=== PATIENT | female | born 1960 ===

== ENCOUNTER 2018-06-10 12:10 | Inpatient (IN) | payer OTHER ==
[2018-06-10] MEDS ORDERED: Sodium Chloride 0.9% 1,000 ML IV ONE (12:49)
[2018-06-10 13:08] LABS: BASO % 0.4 % (0.0-2.0); EOS % 0.3 % (0.0-4.0); HEMOGLOBIN 13.7 g/dL (11.0-16.0); LYMPH # 0.6 K/uL (1.0-4.3); LYMPH % 5.6 % (20.0-40.0); MEAN CELL VOLUME 85.1 fL (81.0-99.0); MEAN CORPUSCULAR HGB CONC 34.1 g/dL (33.0-37.0); MEAN PLATELET VOLUME 10.7 fL (7.2-11.7); MONO # 0.5 K/uL (0.0-0.8); MONO % 4.7 % (0.0-10.0); NEUT # 9.5 K/uL (1.8-7.0); PLATELET COUNT 173 K/uL (130-400); RBC 4.71 Mil/uL (3.80-5.20); RED CELL DISTRIBUTION WIDTH 14.6 % (11.5-14.5); WHITE BLOOD COUNT 10.6 K/uL (4.8-10.8)
--- NOTE | 2018-06-10 13:24 | C.PDOC ---
History Of Present Illness 58 year old female with history of diabetes and hypertension presents to ED complaining of a headache, dizziness, body aches, malaise, and a subjective fever for the past 2 days. Patient states she is visiting from [place] to see her family and reports she feels nauseated, vomited twice, and has urine frequency. She also states she is taking glucophage, novolin insulin, and three other medications for her blood pressure. Denies diarrhea and offers no other medical complaints. She has no cough or URI symptoms. Time Seen by Provider: 06/10/18 12:39 Chief Complaint (Nursing): Dizziness/Lightheaded History Per: Patient History/Exam Limitations: no limitations Onset/Duration Of Symptoms: Days Current Symptoms Are (Timing): Still Present Recent travel outside of the [facility]: Yes ([place]) Past Medical History Reviewed: Historical Data, Nursing Documentation, Vital Signs Vital Signs: Last Vital Signs Temp 99.1 F 06/10/18 12:13 Pulse 100 H 06/10/18 12:13 Resp 18 06/10/18 12:13 BP 138/81 06/10/18 12:13 Pulse Ox 100 06/10/18 15:20 - Medical History PMH: Diabetes, HTN Surgical History: Appendectomy Other Surgeries: Uterine myomectomy Family History: States: No Known Family Hx - Social History Hx Alcohol Use: No Hx Substance Use: No - Immunization History Hx Tetanus Toxoid Vaccination: No Hx Influenza Vaccination: No Hx Pneumococcal Vaccination: No Review Of Systems Constitutional: Positive for: Fever, Malaise Cardiovascular: Negative for: Chest Pain Respiratory: Negative for: Shortness of Breath Gastrointestinal: Positive for: Nausea, Vomiting. Negative for: Diarrhea Genitourinary: Positive for: Frequency Neurological: Positive for: Headache. Negative for: Weakness, Numbness Physical Exam - Physical Exam Appears: Non-toxic, No Acute Distress, Other (obese) Skin: Warm, Dry Head: Atraumatic, Normacephalic Eye(s): bilateral: Normal Inspection Ear(s): Bilateral: Normal Nose: Normal Oral Mucosa: Moist Tongue: Normal Appearing Throat: Normal Chest: Symmetrical Cardiovascular: Rhythm Regular Respiratory: Normal Breath Sounds, No Rales, No Rhonchi, No Wheezing ( tachycardic) Gastrointestinal/Abdominal: Soft, No Tenderness, No Distention Extremity: No Other (peripheral edema) Neurological/Psych: Oriented x3 Gait: Steady ED Course And Treatment - Laboratory Results Result Diagrams: 06/10/18 12:56 06/10/18 12:56 Lab Interpretation: Abnormal (Elevated gluxose 308) ECG: Interpreted By Me ECG Rhythm: Sinus Tachycardia ( with Q waves III, AVF ) O2 Sat by Pulse Oximetry: 100 (RA) Pulse Ox Interpretation: Normal - Radiology CXR: Interpreted by Oh CXR Interpretation: Yes: Other (nodule RUL) - CT Scan/US CT chest Other Rad Studies (CT/US): Read By Radiologist, Radiology Report Reviewed CT/US Interpretation: FINDINGS: LUNGS: No alveolitis is clearly evident however scattered ground-glass opacities appreciated diffusely bilaterally, of uncertain origin. There is a 1.5 x 2.1 cm mass contained within a cavitary lesion at the right upper lobe inferolaterally. The lack of intravenous contrast limits interpretation however this may represent an aspergilloma or other fungal lesion. Neoplasm is not favored but is not completely excluded. A 3 mm and subpleural nodule identified in the left lower lobe for which follow- up chest CT should be considered in 12 months unless this is a low risk patient. MEDIASTINUM: The thoracic inlet is unremarkable. The thoracic aorta is normal in caliber. Main pulmonary artery is dilated to 3.5 cm which can be seen in pulmonary artery hypertension and clinical correlation is advised. There is mild cardiomegaly. Lack it intravenous contrast limits evaluation the mediastinal anatomy to some degree however gross lymphadenopathy is not identified. No pleural or pericardial effusion identified. PLEURA: No pleural fluid. No pneumothorax. BONES: No fracture. No destructive lesion. UPPER ABDOMEN: Cholelithiasis. Punctate intrarenal calculus upper pole right kidney. OTHER FINDINGS: None. IMPRESSION: 1. 2.1 cm mass is identified in the right upper lobe within a cavitary thin walled structure suspicious for an aspergilloma or other fungal lesion. Neoplasm is not favored but is not completely excluded. 2. Mild but diffuse ground-glass opacity scattered bilaterally, nonspecific finding but could reflect active interstitial pulmonary disease. Clinically correlate further. No pleural or pericardial effusion or significant lymphadenopathy. 3. 4 mm subpleural nodule left lower lobe. Clinically correlate as to risk factors for developing lung cancer. Follow-up chest CT can be performed 1 year for high-risk cancer patients. 4. Incidental cholelithiasis. Punctate intrarenal calculus upper pole right kidney. Reevaluation Time: 16:08 Reassessment Condition: Unchanged - Physician Consult Information Time Consulting Physician Contacted: 16:08 Physician Contacted: Jason Ernandez Outcome Of Conversation: Patient to be admitted for treatment of RUL cavitary lung lesion. Patient place in an isolation room. Medical Decision Making Medical Decision Making: Impression: Headache Plan: * CT chest * X-ray, chest one view * labs * IV fluids * Urinalysis Disposition - Disposition Disposition: HOSPITALIZED Disposition Time: 16:09 Condition: STABLE - POA Present On Arrival: Poor Glycemic Control - Clinical Impression Clinical Impression: Cavitary lesion of lung - Scribe Statement The provider has reviewed the documentation as recorded by the Rose Turner Justino Provider Attestation: All medical record entries made by the Rose were at my direction and personally dictated by me. I have reviewed the chart and agree that the record accurately reflects my personal performance of the history, physical exam, medical decision making, and the department course for this patient. I have also personally directed, reviewed, and agree with the discharge instructions and disposition.
[2018-06-10 13:27] LABS: SQUAMOUS EPITHIAL 1 /hpf (0-5); URINE BACTERIA RARE (<OCC); URINE BILIRUBIN NEGATIVE (NEGATIVE); URINE BLOOD NEGATIVE (NEGATIVE); URINE CLARITY Clear (Clear); URINE COLOR Yellow (YELLOW); URINE GLUCOSE (UA) 3+ mg/dL (Normal); URINE LEUKOCYTE ESTERASE 1+ Leu/uL (Negative); URINE PROTEIN 2+ mg/dL (NEGATIVE); URINE UROBILINOGEN NORMAL mg/dL (0.2-1.0)
[2018-06-10 13:38] LABS: ALB/GLOB RATIO 1.1 (1.0-2.1); ALBUMIN 3.8 g/dL (3.5-5.0); ALT/SGPT 22 U/L (9-52); AST/SGOT 16 U/L (14-36); BLOOD UREA NITROGEN 14 mg/dL (7-17); CALCIUM 9.1 mg/dl (8.6-10.4); GFR AFRICAN-AMERICAN > 60; GFR NON-AFRICAN AMERICAN > 60
[2018-06-10 13:43] LABS: ANISOCYTOSIS SLIGHT; BANDS 4 % (0-2); LYMPHOCYTE 7 % (20-40); MONOCYTE 3 % (0-10); NEUTROPHIL 86 % (50-75); PLATELET ESTIMATE NORMAL (NORMAL); TOTAL CELLS COUNTED 100
[2018-06-10 13:44] LABS: LARGE PLATELETS PRESENT
--- NOTE | 2018-06-10 15:16 | CT ---
Date of service: 06/10/2018 PROCEDURE: CT Chest without contrast HISTORY: right lung nodule COMPARISON: None available. TECHNIQUE: Contiguous axial images were obtained through the chest without intravenous contrast enhancement. Sagittal and coronal reconstructions were performed. Radiation dose (DLP): 883.81 mGy-cm. This CT exam was performed using one or more of the following dose reduction techniques: Automated exposure control, adjustment of the mA and/or kV according to patient size, and/or use of iterative reconstruction technique. FINDINGS: LUNGS: No alveolitis is clearly evident however scattered ground-glass opacities appreciated diffusely bilaterally, of uncertain origin. There is a 1.5 x 2.1 cm mass contained within a cavitary lesion at the right upper lobe inferolaterally. The lack of intravenous contrast limits interpretation however this may represent an aspergilloma or other fungal lesion. Neoplasm is not favored but is not completely excluded. A 3 mm and subpleural nodule identified in the left lower lobe for which follow-up chest CT should be considered in 12 months unless this is a low risk patient. MEDIASTINUM: The thoracic inlet is unremarkable. The thoracic aorta is normal in caliber. Main pulmonary artery is dilated to 3.5 cm which can be seen in pulmonary artery hypertension and clinical correlation is advised. There is mild cardiomegaly. Lack it intravenous contrast limits evaluation the mediastinal anatomy to some degree however gross lymphadenopathy is not identified. No pleural or pericardial effusion identified. PLEURA: No pleural fluid. No pneumothorax. BONES: No fracture. No destructive lesion. UPPER ABDOMEN: Cholelithiasis. Punctate intrarenal calculus upper pole right kidney. OTHER FINDINGS: None. IMPRESSION: 1. 2.1 cm mass is identified in the right upper lobe within a cavitary thin walled structure suspicious for an aspergilloma or other fungal lesion. Neoplasm is not favored but is not completely excluded. 2. Mild but diffuse ground-glass opacity scattered bilaterally, nonspecific finding but could reflect active interstitial pulmonary disease. Clinically correlate further. No pleural or pericardial effusion or significant lymphadenopathy. 3. 4 mm subpleural nodule left lower lobe. Clinically correlate as to risk factors for developing lung cancer. Follow-up chest CT can be performed 1 year for high-risk cancer patients. 4. Incidental cholelithiasis. Punctate intrarenal calculus upper pole right kidney.
--- NOTE | 2018-06-10 16:33 | CP.PCM.HP ---
<Ewa Brown Adolfo - Last Filed: 06/10/18 19:10> History of Present Illness - History of Present Illness History of Present Illness: CC: vomiting, fever, chills HPI: Patient is a 58 year old F with PMHx of HTN and DMII who presents for 1 day of fevers, chills and vomiting. Patient had two episodes of vomiting up food yesterday and two episodes today. Patient denies any abdominal pain or new foods. Patient denies any sick contact. Patient admits to a headache and dizziness yesterday which have now resolved. Patient admits to increased urinary frequency for 1 day, but no hematuria or dysuria. Patient denies weight loss. Patient denies cough, congestion, chest pain, abdominal pain, diarrhea, or constipation. Patient is visiting from [place] (came on 05/24/18). Allergies: NKDA PMHx: HTN and DMII Psurg: appendectomy 1980, hysterectomy 2003 Famhx: sister DMII Social: denies tobacco, drugs, alcohol thinks she had the BCG vaccine as a child Present on Admission - Present on Admission Any Indicators Present on Admission: No History of DVT/PE: No History of Uncontrolled Diabetes: No Urinary Catheter: No Decubitus Ulcer Present: No Review of Systems - Constitutional Constitutional: Chills, Fever. absent: Anorexia, Fatigue - Cardiovascular Cardiovascular: absent: Chest Pain, Dyspnea, Dyspnea on Exertion, Palpitations - Respiratory Respiratory: absent: Cough, Wheezing, Chest Congestion - Gastrointestinal Gastrointestinal: Nausea, Vomiting. absent: Abdominal Pain, Constipation, Diarrhea - Genitourinary Genitourinary: Urinary Frequency. absent: Dysuria, Hematuria Past Patient History - Infectious Disease Hx of Infectious Diseases: None - Past Social History Smoking Status: Never Smoked - CARDIAC Hx Hypertension: Yes - ENDOCRINE/METABOLIC Hx Diabetes Insipidus: Yes - PSYCHIATRIC Hx Substance Use: No - SURGICAL HISTORY Hx Appendectomy: Yes Meds Allergies/Adverse Reactions: Allergies Allergy/AdvReac Type Severity Reaction Status Date / Time No Known Allergies Allergy Unverified 06/10/18 12:13 Physical Exam - Constitutional Appears: Non-toxic, No Acute Distress - Head Exam Head Exam: ATRAUMATIC, NORMAL INSPECTION, NORMOCEPHALIC - Eye Exam Eye Exam: EOMI, Normal appearance - ENT Exam ENT Exam: Mucous Membranes Moist - Respiratory Exam Respiratory Exam: Clear to Auscultation Bilateral, NORMAL BREATHING PATTERN - Cardiovascular Exam Cardiovascular Exam: REGULAR RHYTHM, RRR, +S1, +S2 - GI/Abdominal Exam GI & Abdominal Exam: Normal Bowel Sounds, Soft. absent: Tenderness - Extremities Exam Extremities exam: Positive for: normal inspection. Negative for: pedal edema, tenderness - Neurological Exam Neurological exam: Alert, Normal Gait, Oriented x3 - Psychiatric Exam Psychiatric exam: Normal Affect, Normal Mood - Skin Skin Exam: Intact, Normal Color, Warm Results - Vital Signs Recent Vital Signs: Last Vital Signs Temp 99.1 F 06/10/18 16:27 Pulse 93 H 06/10/18 16:27 Resp 18 06/10/18 16:27 BP 107/65 06/10/18 16:27 Pulse Ox 97 06/10/18 16:27 - Labs Result Diagrams: 06/10/18 12:56 06/10/18 12:56 Labs: Laboratory Results - last 24 hr 06/10/18 06/10/18 06/10/18 12:17 12:56 12:56 WBC 10.6 RBC 4.71 Hgb 13.7 Hct 40.1 MCV 85.1 MCH 29.0 MCHC 34.1 RDW 14.6 H Plt Count 173 MPV 10.7 Neut % (Auto) 89.0 H Lymph % (Auto) 5.6 L Meeker % (Auto) 4.7 Eos % (Auto) 0.3 Baso % (Auto) 0.4 Neut # (Auto) 9.5 H Lymph # (Auto) 0.6 L Meeker # (Auto) 0.5 Eos # (Auto) 0.0 Baso # (Auto) 0.0 Neutrophils % (Manual) 86 H Band Neutrophils % 4 H Lymphocytes % (Manual) 7 L Monocytes % (Manual) 3 Platelet Estimate Normal Large Platelets Present Anisocytosis (manual) Slight Sodium 136 Potassium 4.0 Chloride 95 L Carbon Dioxide 30 Anion Gap 14 BUN 14 Creatinine 0.9 Est GFR ( Amer) > 60 Est GFR (Non-Af Amer) > 60 POC Glucose (mg/dL) 257 H Random Glucose 308 H Calcium 9.1 Total Bilirubin 0.8 AST 16 ALT 22 Alkaline Phosphatase 132 H Total Protein 7.3 Albumin 3.8 Globulin 3.5 Albumin/Globulin Ratio 1.1 Urine Color Urine Clarity Urine pH Ur Specific Congress Urine Protein Urine Glucose (UA) Urine Ketones Urine Blood Urine Nitrate Urine Bilirubin Urine Urobilinogen Ur Leukocyte Esterase Urine WBC (Auto) Urine RBC (Auto) Ur Squamous Epith Cells Urine Bacteria 06/10/18 13:15 WBC RBC Hgb Hct MCV MCH MCHC RDW Plt Count MPV Neut % (Auto) Lymph % (Auto) Meeker % (Auto) Eos % (Auto) Baso % (Auto) Neut # (Auto) Lymph # (Auto) Meeker # (Auto) Eos # (Auto) Baso # (Auto) Neutrophils % (Manual) Band Neutrophils % Lymphocytes % (Manual) Monocytes % (Manual) Platelet Estimate Large Platelets Anisocytosis (manual) Sodium Potassium Chloride Carbon Dioxide Anion Gap BUN Creatinine Est GFR ( Amer) Est GFR (Non-Af Amer) POC Glucose (mg/dL) Random Glucose Calcium Total Bilirubin AST ALT Alkaline Phosphatase Total Protein Albumin Globulin Albumin/Globulin Ratio Urine Color Yellow Urine Clarity Clear Urine pH 6.0 Ur Specific Congress 1.014 Urine Protein 2+ H Urine Glucose (UA) 3+ H Urine Ketones Negative Urine Blood Negative Urine Nitrate Negative Urine Bilirubin Negative Urine Urobilinogen Normal Ur Leukocyte Esterase 1+ H Urine WBC (Auto) 13 H Urine RBC (Auto) 2 Ur Squamous Epith Cells 1 Urine Bacteria Rare Assessment & Plan - Assessment and Plan (Free Text) Assessment: Cavitary Lesion TB vs fungal vs infection Chest CT: 2.1 cm mass is identified in the right upper lobe within a cavitary thin walled structure suspicious for an aspergilloma or other fungal lesion. Neoplasm is not favored but is not completely excluded. Mild but diffuse ground glass opacity scattered bilaterally, nonspecific finding but could reflect active interstitial pulmonary disease. Clinically correlate further. No pleural or pericardial effusion or significant lymphadenopathy. 4mm subpleural nodule left lower lobe. Clinically correlate as to risk factors for developing lung cancer Incidental Cholelithiasis. Punctate intrarenal calculus upper pole right kidney. ID, Dr. Roberts consulted, help appreciated neg for flu a/b f/u Quantiferon gold -PPD (f/u read) -AFB sputum x 3 (using mucomyst and duonebs to initiate sputum production) -sputum -HIV1/2 r/o rheumatologic causes ESR, CELE, ANCA f/u legionella, mycoplasma, strep pneumo meds: Azithromycin 500mg ivpb daily Rocephin 1gm q12h Florastor 250mg po BID UTI urine: 1+ leuk esterase f/u urine culture Rocephin 1gm q12h HTN Amlodipine 5mg po daily Bisoprolol 10mg po daily HCTZ 25mg po daily DMII accuchecks ISS hypoglycemia protocol Prophylaxis: SCDs Heparin 5000u sc q8h Pepcid 20mg po daily Discussed with Dr. Rhodes <CarmeloShireen V - Last Filed: 06/13/18 22:18> Results - Vital Signs Recent Vital Signs: Last Vital Signs Temp 98.1 F 06/13/18 15:25 Pulse 87 06/13/18 15:25 Resp 20 06/13/18 15:25 BP 123/71 06/13/18 15:25 Pulse Ox 96 06/13/18 15:25 - Labs Result Diagrams: 06/13/18 08:08 06/13/18 08:08 Labs: Laboratory Results - last 24 hr 06/10/18 06/11/18 06/12/18 19:36 08:41 07:03 WBC RBC Hgb Hct MCV MCH MCHC RDW Plt Count MPV Neut % (Auto) Lymph % (Auto) Meeker % (Auto) Eos % (Auto) Baso % (Auto) Neut # (Auto) Lymph # (Auto) Meeker # (Auto) Eos # (Auto) Baso # (Auto) Sodium Potassium Chloride Carbon Dioxide Anion Gap BUN Creatinine Est GFR ( Amer) Est GFR (Non-Af Amer) POC Glucose (mg/dL) Random Glucose Calcium Phosphorus Magnesium Total Bilirubin AST ALT Alkaline Phosphatase Total Protein Albumin Globulin Albumin/Globulin Ratio Urine Color Urine Clarity Urine pH Ur Specific Congress Urine Protein Urine Glucose (UA) Urine Ketones Urine Blood Urine Nitrate Urine Bilirubin Urine Urobilinogen Ur Leukocyte Esterase Urine WBC (Auto) Ur Squamous Epith Cells Urine Bacteria Urine Yeast (Budding) CELE Screen Negative Proteinase 3 (PR3) <1.0 Myeloperoxidase Ab <1.0 Thyroperoxidase Ab 1 TB Test (QFT) Nil TNP TB Test Mitogen - Nil TNP TB Test TB - Nil TNP TB Test (QFT) TNP 06/12/18 06/12/18 06/12/18 11:54 17:07 20:44 WBC RBC Hgb Hct MCV MCH MCHC RDW Plt Count MPV Neut % (Auto) Lymph % (Auto) Meeker % (Auto) Eos % (Auto) Baso % (Auto) Neut # (Auto) Lymph # (Auto) Meeker # (Auto) Eos # (Auto) Baso # (Auto) Sodium Potassium Chloride Carbon Dioxide Anion Gap BUN Creatinine Est GFR ( Amer) Est GFR (Non-Af Amer) POC Glucose (mg/dL) 322 H 209 H 176 H Random Glucose Calcium Phosphorus Magnesium Total Bilirubin AST ALT Alkaline Phosphatase Total Protein Albumin Globulin Albumin/Globulin Ratio Urine Color Urine Clarity Urine pH Ur Specific [place] Urine Protein Urine Glucose (UA) Urine Ketones Urine Blood Urine Nitrate Urine Bilirubin Urine Urobilinogen Ur Leukocyte Esterase Urine WBC (Auto) Ur Squamous Epith Cells Urine Bacteria Urine Yeast (Budding) CELE Screen Proteinase 3 (PR3) Myeloperoxidase Ab Thyroperoxidase Ab TB Test (QFT) Nil TB Test Mitogen - Nil TB Test TB - Nil TB Test (QFT) 06/13/18 06/13/18 06/13/18 06:36 08:08 08:08 WBC 8.8 RBC 5.00 Hgb 14.5 Hct 42.9 MCV 85.9 MCH 29.0 MCHC 33.7 RDW 14.9 H Plt Count 207 MPV 10.0 Neut % (Auto) 59.4 Lymph % (Auto) 28.1 Meeker % (Auto) 8.6 Eos % (Auto) 3.3 Baso % (Auto) 0.6 Neut # (Auto) 5.3 Lymph # (Auto) 2.5 Meeker # (Auto) 0.8 Eos # (Auto) 0.3 Baso # (Auto) 0.0 Sodium 140 Potassium 4.4 Chloride 97 L Carbon Dioxide 31 H Anion Gap 16 BUN 20 H Creatinine 1.2 Est GFR ( Amer) 56 Est GFR (Non-Af Amer) 46 POC Glucose (mg/dL) 218 H Random Glucose 242 H Calcium 9.6 Phosphorus 3.6 Magnesium 2.0 Total Bilirubin 0.4 AST 18 ALT 26 Alkaline Phosphatase 141 H Total Protein 8.0 Albumin 4.1 Globulin 3.8 Albumin/Globulin Ratio 1.1 Urine Color Urine Clarity Urine pH Ur Specific Congress Urine Protein Urine Glucose (UA) Urine Ketones Urine Blood Urine Nitrate Urine Bilirubin Urine Urobilinogen Ur Leukocyte Esterase Urine WBC (Auto) Ur Squamous Epith Cells Urine Bacteria Urine Yeast (Budding) CELE Screen Proteinase 3 (PR3) Myeloperoxidase Ab Thyroperoxidase Ab TB Test (QFT) Nil TB Test Mitogen - Nil TB Test TB - Nil TB Test (QFT) 06/13/18 06/13/18 06/13/18 11:14 17:19 18:45 WBC RBC Hgb Hct MCV MCH MCHC RDW Plt Count MPV Neut % (Auto) Lymph % (Auto) Meeker % (Auto) Eos % (Auto) Baso % (Auto) Neut # (Auto) Lymph # (Auto) Meeker # (Auto) Eos # (Auto) Baso # (Auto) Sodium Potassium Chloride Carbon Dioxide Anion Gap BUN Creatinine Est GFR ( Amer) Est GFR (Non-Af Amer) POC Glucose (mg/dL) 365 H 227 H Random Glucose Calcium Phosphorus Magnesium Total Bilirubin AST ALT Alkaline Phosphatase Total Protein Albumin Globulin Albumin/Globulin Ratio Urine Color Yellow Urine Clarity Hazy Urine pH 5.0 Ur Specific Congress 1.018 Urine Protein 1+ H Urine Glucose (UA) 2+ H Urine Ketones Negative Urine Blood Negative Urine Nitrate Negative Urine Bilirubin Negative Urine Urobilinogen Normal Ur Leukocyte Esterase Neg Urine WBC (Auto) 5 Ur Squamous Epith Cells 33 H Urine Bacteria Few H Urine Yeast (Budding) Rare H CELE Screen Proteinase 3 (PR3) Myeloperoxidase Ab Thyroperoxidase Ab TB Test (QFT) Nil TB Test Mitogen - Nil TB Test TB - Nil TB Test (QFT) 06/13/18 20:55 WBC RBC Hgb Hct MCV MCH MCHC RDW Plt Count MPV Neut % (Auto) Lymph % (Auto) Meeker % (Auto) Eos % (Auto) Baso % (Auto) Neut # (Auto) Lymph # (Auto) Meeker # (Auto) Eos # (Auto) Baso # (Auto) Sodium Potassium Chloride Carbon Dioxide Anion Gap BUN Creatinine Est GFR ( Amer) Est GFR (Non-Af Amer) POC Glucose (mg/dL) 120 H Random Glucose Calcium Phosphorus Magnesium Total Bilirubin AST ALT Alkaline Phosphatase Total Protein Albumin Globulin Albumin/Globulin Ratio Urine Color Urine Clarity Urine pH Ur Specific [place] Urine Protein Urine Glucose (UA) Urine Ketones Urine Blood Urine Nitrate Urine Bilirubin Urine Urobilinogen Ur Leukocyte Esterase Urine WBC (Auto) Ur Squamous Epith Cells Urine Bacteria Urine Yeast (Budding) CELE Screen Proteinase 3 (PR3) Myeloperoxidase Ab Thyroperoxidase Ab TB Test (QFT) Nil TB Test Mitogen - Nil TB Test TB - Nil TB Test (QFT) Attending/Attestation - Attestation I have personally seen and examined this patient.: Yes I have fully participated in the care of the patient.: Yes I have reviewed all pertinent clinical information: Yes Notes (Text): This is late computer entry for 06/10/18. Patient seen, examined, and case discussed with medical center director. Patient comes in for vomitting, fever, chills and urinary frequency. She is visiting her daughter from [place] to celebrate her 39th birthday. She is planning to return on 07/18 to [place]. Patient reports she may have had the [facility] [place]. She denies cough, denies chest pain, denies steroid use, denies incarceration history. 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 Admitting orders discussed with resident at time of admission Infectious disease consult Start IV abx to cover to pneumonia and urinary tract infection Workup to rule out TB Assessment/Plan 1) Pulmonary Cavitary Lesion Pulmonary Nodules Assessment/Plan * Airborne isolation * ID, Dr. Roberts consulted, help appreciated * Chest CT: 2.1 cm mass is identified in the right upper lobe within a cavitary thin walled structure suspicious for an aspergilloma or other fungal lesion. Neoplasm is not favored but is not completely excluded. Mild but diffuse ground glass opacity scattered bilaterally, nonspecific finding but could reflect active interstitial pulmonary disease. Clinically correlate further. No pleural or pericardial effusion or significant lymphadenopathy. 4mm subpleural nodule left lower lobe. Clinically correlate as to risk factors for developing lung cancer. Incidental Cholelithiasis. Punctate intrarenal calculus upper pole right kidney. * Chest Xray (06/10/18): nodule mid right lung zone laterally. Please see separate chest CT also performed 06/10/18 further evaluating this abnormality. Cardiomegaly. * f/u Quantiferon gold * To be place PPD (f/u read) * Order for AFB sputum x 3 (using mucomyst and duonebs to induce sputum production) * Sputum culture * Order for HIV1/2 * Check ESR, CELE, ANCA * Check legionella, mycoplasma, strep pneumo * Start Azithromycin 500mg ivpb daily * Start Rocephin 1gm q12h * Start Florastor 250mg po BID 2) UTI Assessment/Plan * urine: 1+ leuk esterase * f/u urine culture * Start Rocephin 1gm q12h 3) Hypertension Assessment/Plan * Amlodipine 5mg po daily * Bisoprolol 10mg po daily * HCTZ 25mg po daily 4) DMII Assessment/Plan * accuchecks QAC and HSI * ISS * hypoglycemia protocol 5) Prophylaxis: * SCDs * Heparin 5000u sc q8h * Pepcid 20mg po daily
--- NOTE | 2018-06-10 18:05 | RAD ---
Date of service: 06/10/2018 PROCEDURE: CHEST RADIOGRAPH, 1 VIEW HISTORY: SOB COMPARISON: None available. FINDINGS: LUNGS: A nodular density is identified at the mid right lung zone laterally. No definite infiltrate bilaterally. PLEURA: No pneumothorax or pleural fluid seen. CARDIOVASCULAR: Cardiomediastinal silhouette may be enlarged for magnification though cardiomegaly is not completely excluded. No pulmonary vascular congestion. OSSEOUS STRUCTURES: No significant abnormalities. VISUALIZED UPPER ABDOMEN: Normal. OTHER FINDINGS: None. IMPRESSION: Nodule mid right lung zone laterally. Please see separate chest CT also performed 06/10/2018 further evaluating this abnormality. Cardiomegaly not excluded.
[2018-06-10] MEDS ORDERED: Dextrose 50% SYRINGE Inj (50 ml) IV PRN (18:24)
[2018-06-10] MEDS ORDERED: Glucagon Recombinant 1 mg Inj IM PRN (18:24)
[2018-06-10] MEDS ORDERED: Tuberculin 5 Units/0.1 ml Inj ID ONE ×2 (18:30→20:19)
[2018-06-10] MEDS: cefTRIAXone IV 1 gm in Dextros 50 ML IVPB SCH (20:33)
[2018-06-10] MEDS: Saccharomyces Boulardi 250 mg Cap PO SCH (20:33)
[2018-06-10] MEDS: (Novolin R) Insulin Human Regular 100 units/ml vial SC SCH (22:02)
[2018-06-11 01:18] VITALS: RESP 20
[2018-06-11] MEDS: Albuterol-Ipratrop 3 mg / 0.5 (3 ml) UD INH SCH (07:46)
[2018-06-11] MEDS: Acetylcysteine 20% Inhal Soln (4ml) INH SCH (07:46)
[2018-06-11] MEDS: (Novolin R) Insulin Human Regular 100 units/ml vial SC SCH ×4 (08:18→22:08)
[2018-06-11] MEDS: cefTRIAXone IV 1 gm in Dextros 50 ML IVPB SCH ×2 (08:18→19:48)
--- NOTE | 2018-06-11 08:20 | CP.PCM.PN ---
<Ewa Brown - Last Filed: 06/11/18 16:26> Subjective - Date & Time of Evaluation Date of Evaluation: 06/11/18 Time of Evaluation: 07:00 - Subjective Subjective: Progress Note for Dr. Rhodes Patient seen and examined at bedside. Patient is tearful because she is worried that her lung mass is malignant. Patient says physically she is feeling better. Patient is not having any more nausea or vomiting. Patient denies chest pain, shortness of breath, abdominal pain, or diarrhea. Patient has not had a bowel movement since Tuesday. Patient tried to produce sputum this morning, but was unable to. Objective - Vital Signs/Intake and Output Vital Signs (last 24 hours): Temp Pulse Resp BP Pulse Ox 98.7 F 89 20 125/66 95 06/10/18 23:25 06/10/18 23:25 06/10/18 23:25 06/11/18 04:00 06/10/18 23:25 - Medications Medications: Current Medications Acetylcysteine (Acetylcysteine 20%) 4 ml INH DAILY [facility] Last Admin: 06/11/18 07:46 Dose: 4 ml Albuterol/Ipratropium (Duoneb 3 Mg/0.5 Mg (3 Ml) Ud) 3 ml INH DAILY [facility] Last Admin: 06/11/18 07:46 Dose: 3 ml Amlodipine Besylate (Norvasc) 5 mg PO DAILY [facility] Bisoprolol Fumarate (Zebeta) 10 mg PO DAILY [facility] Dextrose (Dextrose 50% Inj) 0 ml IV STAT PRN; Protocol PRN Reason: Hypoglycemia Protocol Dextrose (Glutose 15) 0 gm PO ONCE PRN; Protocol PRN Reason: Hypoglycemia Protocol Famotidine (Pepcid) 20 mg PO DAILY [facility] Glucagon (Glucagen Diagnostic Kit) 0 mg IM STAT PRN; Protocol PRN Reason: Hypoglycemia Protocol Heparin Sodium (Porcine) (Heparin) 5,000 units SC Q8 [facility] Last Admin: 06/11/18 05:46 Dose: 5,000 units Hydrochlorothiazide (Hydrodiuril) 25 mg PO DAILY [facility] Dextrose (Dextrose 5% In Water 1000 Ml) 1,000 mls @ 0 mls/hr IV .Q0M PRN; Protocol; Per Protocol PRN Reason: Hypoglycemia Protocol Ceftriaxone Sodium (Rocephin Iv 1 Gm Duplex) 50 mls @ 100 mls/hr IVPB Q12H [facility] PRN Reason: Protocol Last Admin: 06/11/18 08:18 Dose: 100 mls/hr Azithromycin 500 mg/ Sodium (Chloride) 250 mls @ 166.667 mls/hr IVPB DAILY [facility] PRN Reason: Protocol Insulin Human Regular (Novolin R) 0 unit SC ACHS [facility] PRN Reason: Protocol Last Admin: 06/11/18 08:18 Dose: 2 u Saccharomyces Boulardii (Florastor) 250 mg PO BID [facility] Last Admin: 06/10/18 20:33 Dose: 250 mg - Labs Labs: 06/10/18 12:56 06/10/18 12:56 - Additional Findings Additional findings: - Constitutional Appears: Non-toxic, No Acute Distress - Head Exam Head Exam: ATRAUMATIC, NORMAL INSPECTION, NORMOCEPHALIC - Eye Exam Eye Exam: EOMI, Normal appearance - ENT Exam ENT Exam: Mucous Membranes Moist - Respiratory Exam Respiratory Exam: Clear to Auscultation Bilateral, NORMAL BREATHING PATTERN - Cardiovascular Exam Cardiovascular Exam: REGULAR RHYTHM, RRR, +S1, +S2 - GI/Abdominal Exam GI & Abdominal Exam: Normal Bowel Sounds, Soft. absent: Tenderness - Extremities Exam Extremities exam: Positive for: normal inspection. Negative for: pedal edema, tenderness - Neurological Exam Neurological exam: Alert, Normal Gait, Oriented x3 - Psychiatric Exam Psychiatric exam: Normal Affect, Normal Mood - Skin Skin Exam: Intact, Normal Color, Warm Assessment and Plan - Assessment and Plan (Free Text) Assessment: TB vs fungal vs infection Chest CT: 2.1 cm mass is identified in the right upper lobe within a cavitary thin walled structure suspicious for an aspergilloma or other fungal lesion. Neoplasm is not favored but is not completely excluded. Mild but diffuse ground glass opacity scattered bilaterally, nonspecific finding but could reflect active interstitial pulmonary disease. Clinically correlate further. No pleural or pericardial effusion or significant lymphadenopathy. 4mm subpleural nodule left lower lobe. Clinically correlate as to risk factors for developing lung cancer Incidental Cholelithiasis. Punctate intrarenal calculus upper pole right kidney. ID, Dr. Roberts consulted, help appreciated Pulm consulted, Dr. real for flu a/b f/u Quantiferon gold -PPD (f/u read) -AFB sputum x 3 (using mucomyst and duonebs to initiate sputum production) -sputum -HIV1/2 negative r/o rheumatologic causes CRP: 179.90 TSH: 7.62, Free T4: 1.15- will need to be repeated in 3 months ESR, CELE, ANCA f/u legionella, mycoplasma, strep pneumo meds: Azithromycin 500mg ivpb daily Rocephin 1gm q12h Florastor 250mg po BID UTI urine: 1+ leuk esterase f/u urine culture Rocephin 1gm q12h HTN Amlodipine 5mg po daily Bisoprolol 10mg po daily HCTZ 25mg po daily DMII HgA1C: 10.6 accuchecks ISS hypoglycemia protocol as per patient patient takes regular insulin 60 u in am and 55u in pm-- calculate 24 hour insulin sliding scale use endocrine consulted, Dr. Nuñez, help appreciated HLD Triglycerides 222 Cholesterol 136 LDL 71 HDL 24 Diet management [place] 3 po BID Constipation Colace 100mg po TID Prophylaxis: SCDs Heparin 5000u sc q8h Pepcid 20mg po daily Discussed with Dr. Rhodes <Shireen Rhodes V - Last Filed: 06/13/18 22:35> Objective - Vital Signs/Intake and Output Vital Signs (last 24 hours): Temp Pulse Resp BP Pulse Ox 98.1 F 87 20 123/71 96 06/13/18 15:25 06/13/18 15:25 06/13/18 15:25 06/13/18 15:25 06/13/18 15:25 - Medications Medications: Current Medications Acetylcysteine (Acetylcysteine 20%) 4 ml INH DAILY [facility] Last Admin: 06/11/18 07:46 Dose: 4 ml Albuterol/Ipratropium (Duoneb 3 Mg/0.5 Mg (3 Ml) Ud) 3 ml INH DAILY [facility] Last Admin: 06/11/18 07:46 Dose: 3 ml Bisoprolol Fumarate (Zebeta) 10 mg PO DAILY [facility] Last Admin: 06/13/18 10:15 Dose: 10 mg Dextrose (Dextrose 50% Inj) 0 ml IV STAT PRN; Protocol PRN Reason: Hypoglycemia Protocol Dextrose (Glutose 15) 0 gm PO ONCE PRN; Protocol PRN Reason: Hypoglycemia Protocol Docusate Sodium (Colace) 100 mg PO TID [facility] Last Admin: 06/13/18 17:45 Dose: 100 mg Famotidine (Pepcid) 20 mg PO DAILY [facility] Last Admin: 06/13/18 10:34 Dose: 20 mg Glipizide (Glucotrol) 10 mg PO ACBD [facility] Last Admin: 06/13/18 17:45 Dose: 10 mg Glucagon (Glucagen Diagnostic Kit) 0 mg IM STAT PRN; Protocol PRN Reason: Hypoglycemia Protocol Hydrochlorothiazide (Hydrodiuril) 25 mg PO DAILY [facility] Last Admin: 06/13/18 10:34 Dose: Not Given Azithromycin 500 mg/ Sodium (Chloride) 250 mls @ 166.667 mls/hr IVPB DAILY [facility] PRN Reason: Protocol Last Admin: 06/13/18 09:10 Dose: 166.667 mls/hr Insulin Aspart (Novolog Mix 70/30 (70/30 Units/Ml)) 24 units SC ACD [facility] Last Admin: 06/13/18 17:46 Dose: 24 units Insulin Human Isoph/Insulin Regular (Novolin 70/30 (70/30 Units/Ml) 10 Ml) 34 units SC ACB [facility] Insulin Human NPH (Novolin N) 24 unit SC HS [facility] Last Admin: 06/13/18 21:26 Dose: 24 units Insulin Human Regular (Novolin R) 0 unit SC ACHS [facility] PRN Reason: Protocol Last Admin: 06/13/18 21:01 Dose: Not Given Levothyroxine Sodium (Synthroid) 50 mcg PO DAILY@0630 [facility] Lisinopril (Zestril) 10 mg PO DAILY [facility] Last Admin: 06/13/18 10:34 Dose: 10 mg Metformin HCl (Glucophage) 850 mg PO BID [facility] Last Admin: 06/13/18 17:45 Dose: 850 mg Nbeag-0-Gtto Ethyl Esters (Lovaza) 1 gm PO BID [facility] Last Admin: 06/13/18 17:45 Dose: 1 gm Rosuvastatin Calcium (Crestor) 2.5 mg PO HS [facility] Last Admin: 06/13/18 21:25 Dose: 2.5 mg Saccharomyces Boulardii (Florastor) 250 mg PO BID [facility] Last Admin: 06/13/18 17:45 Dose: 250 mg - Labs Labs: 06/13/18 08:08 06/13/18 08:08 Attending/Attestation - Attestation I have personally seen and examined this patient.: Yes I have fully participated in the care of the patient.: Yes I have reviewed all pertinent clinical information, including history, physical exam and plan: Yes Notes (Text): This is late computer entry for 06/11/18. Patient seen, examined and case discussed with day-time resident. Patient is unable to cough to provide sputum sample for AFB. We will continue to encourage patient. She denies cough complaints. Patient is at bedside with her daughter. Infectious disease recommending for pulmonary consult. We will consult pulmonary consult powertrain control systems engineer to evaluate the patient in light of cavitary lesion. Patient has uncontrolled diabetes, will seek endocrinology consult. Assessment/Plan 1) Pulmonary Cavitary Lesion Pulmonary Nodules Assessment/Plan * Airborne isolation * ID, Dr. Roberts consulted, help appreciated * Chest CT: 2.1 cm mass is identified in the right upper lobe within a cavitary thin walled structure suspicious for an aspergilloma or other fungal lesion. Neoplasm is not favored but is not completely excluded. Mild but diffuse ground glass opacity scattered bilaterally, nonspecific finding but could reflect active interstitial pulmonary disease. Clinically correlate further. No pleural or pericardial effusion or significant lymphadenopathy. 4mm subpleural nodule left lower lobe. Clinically correlate as to risk factors for developing lung cancer. Incidental Cholelithiasis. Punctate intrarenal calculus upper pole right kidney. * Chest Xray (06/10/18): nodule mid right lung zone laterally. Please see separate chest CT also performed 06/10/18 further evaluating this abnormality. Cardiomegaly. * f/u Quantiferon gold * To be place PPD (f/u read) * Order for AFB sputum x 3 (using mucomyst and duonebs to induce sputum production) * Sputum culture * Order for HIV1/2 * Check ESR, CELE, ANCA * Check legionella, mycoplasma, strep pneumo * Start Azithromycin 500mg ivpb daily * Start Rocephin 1gm q12h * Start Florastor 250mg po BID 2) UTI Assessment/Plan * urine: 1+ leuk esterase * f/u urine culture * Start Rocephin 1gm q12h 3) Hypertension Assessment/Plan * Amlodipine 5mg po daily * Bisoprolol 10mg po daily * HCTZ 25mg po daily 4) DMII, insulin dependent Assessment/Plan * Endocrinology (Dr. Nuñez) on board--> help appreciated * accuchecks QAC and HSI * ISS * hypoglycemia protocol * HgA1C: 10.6 5) HLD Assessment/Plan * Triglycerides 222 Cholesterol 136 LDL 71 HDL 24 * Will start [place] 3 po BID-->will need OTC omega 3 FA on discharge 6) Constipation Assessment/Plan * Colace 100mg po TID * Monitor for bowel movement 7) Prophylaxis: * SCDs * Heparin 5000u sc q8h * Pepcid 20mg po daily
[2018-06-11 08:55] LABS: BASO % 0.6 % (0.0-2.0); EOS # 0.2 K/uL (0.0-0.7); LYMPH # 1.4 K/uL (1.0-4.3); LYMPH % 22.9 % (20.0-40.0); MEAN CELL VOLUME 85.7 fL (81.0-99.0); MEAN CORPUSCULAR HEMOGLOBIN 29.2 pg (27.0-31.0); MEAN CORPUSCULAR HGB CONC 34.1 g/dL (33.0-37.0); MEAN PLATELET VOLUME 10.7 fL (7.2-11.7); MONO # 0.5 K/uL (0.0-0.8); MONO % 7.8 % (0.0-10.0); NEUT # 4.1 K/uL (1.8-7.0); NEUT % 65.7 % (50.0-75.0); NRBC % 0.1 % (0.0-2.0); RBC 4.78 Mil/uL (3.80-5.20); RED CELL DISTRIBUTION WIDTH 14.8 % (11.5-14.5); WHITE BLOOD COUNT 6.2 K/uL (4.8-10.8)
[2018-06-11 09:12] LABS: ALBUMIN 3.7 g/dL (3.5-5.0); ALT/SGPT 22 U/L (9-52); AST/SGOT 16 U/L (14-36); BLOOD UREA NITROGEN 14 mg/dL (7-17); CALCIUM 9.1 mg/dl (8.6-10.4); GFR AFRICAN-AMERICAN > 60; GFR NON-AFRICAN AMERICAN > 60; HDL CHOLESTEROL 24 mg/dL (30-70)
[2018-06-11 09:22] LABS: LDL CHOLESTEROL 71 mg/dL (0-129)
[2018-06-11] MEDS: Azithromycin 500 MG in Sodium Chloride 0.9% 250 ML IVPB SCH (10:18)
[2018-06-11] MEDS: Saccharomyces Boulardi 250 mg Cap PO SCH ×2 (10:19→17:57)
[2018-06-11] MEDS: Omega-3-Acid Ethyl Esters 1 GM Cap PO SCH (17:57)
--- NOTE | 2018-06-11 19:01 | CP.PCM.CON ---
History of Present Illness - History of Present Illness History of Present Illness: dictated Past Patient History - Infectious Disease Hx of Infectious Diseases: None - Past Medical History & Family History Past Medical History?: Yes - Past Social History Smoking Status: Never Smoked - CARDIAC Hx Hypertension: Yes - ENDOCRINE/METABOLIC Hx Diabetes Insipidus: Yes - HEMATOLOGICAL/ONCOLOGICAL Hx Blood Disorders: No - INTEGUMENTARY Hx Dermatological Problems: No - MUSCULOSKELETAL/RHEUMATOLOGICAL Hx Musculoskeletal Disorders: No Hx Falls: No - GASTROINTESTINAL Hx Gastrointestinal Disorders: No - GENITOURINARY/GYNECOLOGICAL Hx Genitourinary Disorders: No - PSYCHIATRIC Hx Substance Use: No - SURGICAL HISTORY Hx Appendectomy: Yes - ANESTHESIA Hx Anesthesia: Yes Hx Anesthesia Reactions: No Hx Malignant Hyperthermia: No Has any member of the family had a problem w/ anesthesia?: No Meds Allergies/Adverse Reactions: Allergies Allergy/AdvReac Type Severity Reaction Status Date / Time No Known Allergies Allergy Unverified 06/10/18 12:13 - Medications Medications: Current Medications Acetylcysteine (Acetylcysteine 20%) 4 ml INH DAILY [facility] Last Admin: 06/11/18 07:46 Dose: 4 ml Albuterol/Ipratropium (Duoneb 3 Mg/0.5 Mg (3 Ml) Ud) 3 ml INH DAILY [facility] Last Admin: 06/11/18 07:46 Dose: 3 ml Amlodipine Besylate (Norvasc) 5 mg PO DAILY [facility] Last Admin: 06/11/18 10:19 Dose: 5 mg Bisoprolol Fumarate (Zebeta) 10 mg PO DAILY [facility] Last Admin: 06/11/18 10:18 Dose: 10 mg Dextrose (Dextrose 50% Inj) 0 ml IV STAT PRN; Protocol PRN Reason: Hypoglycemia Protocol Dextrose (Glutose 15) 0 gm PO ONCE PRN; Protocol PRN Reason: Hypoglycemia Protocol Docusate Sodium (Colace) 100 mg PO TID [facility] Last Admin: 06/11/18 17:57 Dose: 100 mg Famotidine (Pepcid) 20 mg PO DAILY [facility] Last Admin: 06/11/18 10:19 Dose: 20 mg Glucagon (Glucagen Diagnostic Kit) 0 mg IM STAT PRN; Protocol PRN Reason: Hypoglycemia Protocol Heparin Sodium (Porcine) (Heparin) 5,000 units SC Q8 [facility] Last Admin: 06/11/18 14:53 Dose: 5,000 units Hydrochlorothiazide (Hydrodiuril) 25 mg PO DAILY [facility] Last Admin: 06/11/18 10:19 Dose: 25 mg Dextrose (Dextrose 5% In Water 1000 Ml) 1,000 mls @ 0 mls/hr IV .Q0M PRN; Protocol; Per Protocol PRN Reason: Hypoglycemia Protocol Ceftriaxone Sodium (Rocephin Iv 1 Gm Duplex) 50 mls @ 100 mls/hr IVPB Q12H [facility] PRN Reason: Protocol Last Admin: 06/11/18 08:18 Dose: 100 mls/hr Azithromycin 500 mg/ Sodium (Chloride) 250 mls @ 166.667 mls/hr IVPB DAILY [facility] PRN Reason: Protocol Last Admin: 06/11/18 10:18 Dose: 166.667 mls/hr Insulin Human Regular (Novolin R) 0 unit SC ACHS [facility] PRN Reason: Protocol Last Admin: 06/11/18 17:30 Dose: 4 u Ciwng-2-Wyoj Ethyl Esters (Lovaza) 1 gm PO BID [facility] Last Admin: 06/11/18 17:57 Dose: 1 gm Saccharomyces Boulardii (Florastor) 250 mg PO BID [facility] Last Admin: 06/11/18 17:57 Dose: 250 mg Results - Vital Signs Recent Vital Signs: Last Vital Signs Temp 97.9 F 06/11/18 16:00 Pulse 77 06/11/18 16:00 Resp 20 06/11/18 16:00 BP 115/63 06/11/18 16:00 Pulse Ox 95 06/11/18 16:00 - Labs Result Diagrams: 06/11/18 08:41 06/11/18 08:41 Labs: Laboratory Results - last 24 hr 06/10/18 06/11/18 06/11/18 19:36 08:41 08:41 WBC RBC Hgb Hct MCV MCH MCHC RDW Plt Count MPV Neut % (Auto) Lymph % (Auto) [place] % (Auto) Eos % (Auto) Baso % (Auto) Neut # (Auto) Lymph # (Auto) [place] # (Auto) Eos # (Auto) Baso # (Auto) ESR Sodium 139 Potassium 4.0 Chloride 99 Carbon Dioxide 31 H Anion Gap 13 BUN 14 Creatinine 0.9 Est GFR ( Amer) > 60 Est GFR (Non-Af Amer) > 60 Random Glucose 224 H Hemoglobin A1c 10.6 H Calcium 9.1 Phosphorus 2.4 L Magnesium 1.8 Total Bilirubin 0.4 AST 16 ALT 22 Alkaline Phosphatase 130 H C-Reactive Protein 179.90 H Total Protein 7.3 Albumin 3.7 Globulin 3.6 Albumin/Globulin Ratio 1.0 Triglycerides 222 H Cholesterol 136 LDL Cholesterol Direct 71 HDL Cholesterol 24 L Free T4 TSH 3rd Generation 7.62 H HIV 1&2 Antibody Screen Negative 06/11/18 06/11/18 08:41 08:41 WBC 6.2 RBC 4.78 Hgb 14.0 Hct 41.0 MCV 85.7 MCH 29.2 MCHC 34.1 RDW 14.8 H Plt Count 176 MPV 10.7 Neut % (Auto) 65.7 Lymph % (Auto) 22.9 [place] % (Auto) 7.8 Eos % (Auto) 3.0 Baso % (Auto) 0.6 Neut # (Auto) 4.1 Lymph # (Auto) 1.4 [place] # (Auto) 0.5 Eos # (Auto) 0.2 Baso # (Auto) 0.0 ESR 75 H Sodium Potassium Chloride Carbon Dioxide Anion Gap BUN Creatinine Est GFR ( Amer) Est GFR (Non-Af Amer) Random Glucose Hemoglobin A1c Calcium Phosphorus Magnesium Total Bilirubin AST ALT Alkaline Phosphatase C-Reactive Protein Total Protein Albumin Globulin Albumin/Globulin Ratio Triglycerides Cholesterol LDL Cholesterol Direct HDL Cholesterol Free T4 1.15 TSH 3rd Generation HIV 1&2 Antibody Screen
--- NOTE | 2018-06-12 06:19 | CON ---
Copied To: Clotilde Roberts MD Attending MD: Clotilde Roberts MD DATE: 06/11/2018 HISTORY OF PRESENT ILLNESS: The patient is a 58-year-old female. She is visiting from [place]. She came here on 05/24/2018. She is retired now. 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 She is diabetic and hypertensive; and was having fever, chills, and vomiting. Two episodes of vomiting included the food; and she denies any abdominal pain. Denies being near a sick person. She does state it was related to the food. Admits to headache and dizziness. Denies any cough. No congestions. No sweating. No loss of appetite. No chest pain. No abdominal pain. Just came with fever, vomiting, and some chills. SHE IS NOT ALLERGIC TO ANY MEDICATIONS. Past medical history is negative for any tuberculosis or any respiratory illnesses. She is not a smoker. She denies any sweating at night. No weight loss. PAST MEDICAL HISTORY: Significant for hypertension and diabetes; however, her hemoglobin A1c was more than 10. PAST SURGICAL HISTORY: Significant for appendicectomy in 1980, hysterectomy in 2003. FAMILY HISTORY: Significant for sister having diabetes type 2. SOCIAL HISTORY: She denies tobacco, drug abuse, or alcohol. IMMUNIZATIONS: She did have BCG vaccine as a child. REVIEW OF SYSTEMS: We have placed her in isolation as she has a cavitary lesion in the CAT scan. She did come with chills and fever. No chest pain. No shortness of breath. No cough. No cold. No chest congestion. No wheezing. Did have nausea and vomiting, but no constipation. No diarrhea. No abdominal pain. She does have urinary frequency. No urgency or blood in the urine. Never smoked and no substance abuse. No psych history. PHYSICAL EXAMINATION: VITAL SIGNS: With the help of Khmer-speaking music copyist, T-max is 97.9 right now, pulse 77, blood pressure 115/63, respirations are 20. HEENT: Head is atraumatic and normocephalic. Pupils are reacting to light. NECK: Supple. JVP is flat. No lymphadenopathy present. Trachea is central and no axillary lymph nodes appreciated. LUNGS: Clear. HEART: S1 and S2, regular. No murmurs appreciated. ABDOMEN: Soft. Nontender. No guarding. No rigidity present. EXTREMITIES: Have no edema, clubbing, or cyanosis. Labs are noted. Labs show white count is 6.2, hemoglobin 14, hematocrit 41, platelet count is 176. Serology was done. HIV is negative. Flu is negative. Urine showed 2+ protein, 3+ glucose, wbc 13. She is diabetic, so that needs to be adjusted. Sodium is 139, potassium 4, chloride 99, CO2 is 31, BUN is 13, creatinine is 0.9, alk phos is 130. C-reactive is 179, is high. TSH is high at 7.62, so she may be hypothyroid. Endocrine is going to follow. Chest CT was done. Chest CT shows 2.1 cm mass identified in the right upper lobe within cavitary thin wall structure, suspicious for an aspergilloma or other fungal lesions. Neoplasm is not favored but is not completely excluded. She has a mass lesion and mild but diffuse ground-glass opacity scattered bilaterally, nonspecific finding, but could reflect active interstitial pulmonary disease. No pleural or pericardial effusion. A 4-mm pleural nodule in the left lower lobe. Follow up CT can be performed in 1 year for high risk cancer patient. Incidental cholelithiasis, punctate intrarenal calculus upper pole right kidney. IMPRESSION: She does have a cavitary lesion in the chest, is it tuberculosis, is it to any other etiology, we do not know. She comes from agriculture background, and it may or may not be benign, but we have ordered a Gold QuantiFERON test, AFBs but she is not producing any sputum, so it may be difficult to induce. May need a pulmonary consult, and we will order some fungal cultures also to rule other etiologies, and we will follow. Clotilde Roberts MD
[2018-06-12 07:20] LABS: BASO % 0.7 % (0.0-2.0); EOS # 0.2 K/uL (0.0-0.7); EOS % 3.9 % (0.0-4.0); HEMOGLOBIN 13.6 g/dL (11.0-16.0); LYMPH # 1.4 K/uL (1.0-4.3); LYMPH % 22.4 % (20.0-40.0); MEAN CELL VOLUME 85.5 fL (81.0-99.0); MEAN CORPUSCULAR HGB CONC 33.8 g/dL (33.0-37.0); MEAN PLATELET VOLUME 10.6 fL (7.2-11.7); MONO # 0.5 K/uL (0.0-0.8); MONO % 8.4 % (0.0-10.0); NEUT # 3.9 K/uL (1.8-7.0); NEUT % 64.6 % (50.0-75.0); NRBC % 0.2 % (0.0-2.0); RBC 4.7 Mil/uL (3.80-5.20); RED CELL DISTRIBUTION WIDTH 15.1 % (11.5-14.5); WHITE BLOOD COUNT 6.1 K/uL (4.8-10.8)
[2018-06-12] MEDS ORDERED: (Novolin R) Insulin Human Regular 100 units/ml vial SC SCH (07:30)
[2018-06-12] MEDS ORDERED: (Novolin 70/30) NPH/Regular 70/30 Units/ml 10 ml vial SC SCH (07:30)
[2018-06-12 07:39] LABS: ALB/GLOB RATIO 1.1 (1.0-2.1); ALBUMIN 3.7 g/dL (3.5-5.0); ALT/SGPT 27 U/L (9-52); AST/SGOT 15 U/L (14-36); BLOOD UREA NITROGEN 14 mg/dL (7-17); CALCIUM 9.1 mg/dl (8.6-10.4); GFR AFRICAN-AMERICAN > 60; GFR NON-AFRICAN AMERICAN > 60
--- NOTE | 2018-06-12 07:46 | CP.PCM.PN ---
<Christiano Yates - Last Filed: 06/12/18 14:21> Subjective - Date & Time of Evaluation Date of Evaluation: 06/12/18 Time of Evaluation: 07:45 - Subjective Subjective: Patient was seen and examined lying comfortably in bed. She denies any new complaints and states that she is moving her bowels normally. Patient reports no symptoms of Tb such as night sweats, weight loss, cough. Pt believes her only problem is her diabetes and doesn't need treatment . She denies chest pain , shortness of breath, fever, nausea, vomiting, diarrhea, and constipation. Objective - Vital Signs/Intake and Output Vital Signs (last 24 hours): Temp Pulse Resp BP Pulse Ox 98 F 84 20 136/80 96 06/11/18 23:25 06/11/18 23:25 06/11/18 23:25 06/11/18 23:25 06/11/18 23:25 - Medications Medications: Current Medications Acetylcysteine (Acetylcysteine 20%) 4 ml INH DAILY [facility] Last Admin: 06/11/18 07:46 Dose: 4 ml Albuterol/Ipratropium (Duoneb 3 Mg/0.5 Mg (3 Ml) Ud) 3 ml INH DAILY [facility] Last Admin: 06/11/18 07:46 Dose: 3 ml Amlodipine Besylate (Norvasc) 5 mg PO DAILY [facility] Last Admin: 06/11/18 10:19 Dose: 5 mg Bisoprolol Fumarate (Zebeta) 10 mg PO DAILY [facility] Last Admin: 06/11/18 10:18 Dose: 10 mg Dextrose (Dextrose 50% Inj) 0 ml IV STAT PRN; Protocol PRN Reason: Hypoglycemia Protocol Dextrose (Glutose 15) 0 gm PO ONCE PRN; Protocol PRN Reason: Hypoglycemia Protocol Docusate Sodium (Colace) 100 mg PO TID [facility] Last Admin: 06/11/18 17:57 Dose: 100 mg Famotidine (Pepcid) 20 mg PO DAILY [facility] Last Admin: 06/11/18 10:19 Dose: 20 mg Glipizide (Glucotrol) 10 mg PO ACBD [facility] Glucagon (Glucagen Diagnostic Kit) 0 mg IM STAT PRN; Protocol PRN Reason: Hypoglycemia Protocol Heparin Sodium (Porcine) (Heparin) 5,000 units SC Q8 [facility] Last Admin: 06/12/18 06:40 Dose: 5,000 units Hydrochlorothiazide (Hydrodiuril) 25 mg PO DAILY [facility] Last Admin: 06/11/18 10:19 Dose: 25 mg Dextrose (Dextrose 5% In Water 1000 Ml) 1,000 mls @ 0 mls/hr IV .Q0M PRN; Protocol; Per Protocol PRN Reason: Hypoglycemia Protocol Ceftriaxone Sodium (Rocephin Iv 1 Gm Duplex) 50 mls @ 100 mls/hr IVPB Q12H [facility] PRN Reason: Protocol Last Admin: 06/11/18 19:48 Dose: 100 mls/hr Azithromycin 500 mg/ Sodium (Chloride) 250 mls @ 166.667 mls/hr IVPB DAILY [facility] PRN Reason: Protocol Last Admin: 06/11/18 10:18 Dose: 166.667 mls/hr Insulin Aspart (Novolog Mix 70/30 (70/30 Units/Ml)) 14 units SC ACD [facility] Insulin Human Isoph/Insulin Regular (Novolin 70/30 (70/30 Units/Ml) 10 Ml) 24 units SC ACB [facility] Insulin Human NPH (Novolin N) 20 unit SC HS [facility] Insulin Human Regular (Novolin R) 0 unit SC ACHS [facility] PRN Reason: Protocol Levothyroxine Sodium (Synthroid) 50 mcg PO DAILY@0630 [facility] Metformin HCl (Glucophage) 850 mg PO BID [facility] Szowt-2-Kclc Ethyl Esters (Lovaza) 1 gm PO BID [facility] Last Admin: 06/11/18 17:57 Dose: 1 gm Saccharomyces Boulardii (Florastor) 250 mg PO BID [facility] Last Admin: 06/11/18 17:57 Dose: 250 mg - Labs Labs: 06/12/18 07:03 06/12/18 07:03 - Constitutional Appears: Non-toxic, No Acute Distress - Head Exam Head Exam: ATRAUMATIC, NORMOCEPHALIC - Eye Exam Eye Exam: EOMI, Normal appearance. absent: Scleral icterus - ENT Exam ENT Exam: Mucous Membranes Moist, Normal Exam - Neck Exam Neck Exam: Full ROM, Normal Inspection - Respiratory Exam Respiratory Exam: Clear to Ausculation Bilateral, NORMAL BREATHING PATTERN. absent: Accessory Muscle Use, Rales, Wheezes, Respiratory Distress, Stridor - Cardiovascular Exam Cardiovascular Exam: RRR, +S1, +S2. absent: Murmur - GI/Abdominal Exam GI & Abdominal Exam: Normal Bowel Sounds. absent: Guarding, Rigid, Tenderness - Extremities Exam Extremities Exam: Full ROM. absent: Calf Tenderness, Joint Swelling, Pedal Edema - Back Exam Back Exam: NORMAL INSPECTION. absent: CVA tenderness (L), CVA tenderness (R) - Neurological Exam Neurological Exam: Alert, Awake, CN II-XII Intact, Oriented x3 Neuro motor strength exam: Left Upper Extremity: 5, Right Upper Extremity: 5, Left Lower Extremity: 5, Right Lower Extremity: 5 - Psychiatric Exam Psychiatric exam: Normal Affect, Normal Mood - Skin Skin Exam: Dry, Intact, Normal Color, Warm. absent: Pallor Assessment and Plan - Assessment and Plan (Free Text) Assessment: 58yo Female admitted for possible TB vs fungal vs infectious pneumonia. Plan: TB vs fungal vs infection -Azithromycin 500mg ivpb daily -Ceftriaxone 1gm q12h -Chest CT: 2.1 cm mass is identified in the right upper lobe within a cavitary thin walled structure suspicious for an aspergilloma or other fungal lesion. Neoplasm is not favored but is not completely excluded. Mild but diffuse ground glass opacity scattered bilaterally, nonspecific finding but could reflect active interstitial pulmonary disease. Clinically correlate further. No pleural or pericardial effusion or significant lymphadenopathy. 4mm subpleural nodule left lower lobe. Clinically correlate as to risk factors for developing lung cancer Incidental Cholelithiasis. Punctate intrarenal calculus upper pole right kidney. -ID, Dr. Roberts consulted, help appreciated: unable to obtain sputum, fungal culture, pulm consult -Pulm consulted, Dr. Álvarez -Influenza: neg -legionella: neg -cryptococcus: neg -mycoplasma, strep pneumo -Quantiferon gold unable to obtain -PPD (f/u read) -obtain AFB sputum x 3 (using mucomyst and duonebs to initiate sputum production ) -HIV1/2 negative -r/o rheumatologic causes -CRP: 68, trending down from 179.90 -TSH: 5.2, Free T4: 1.15, Thyroxine:9.21 - will need to be repeated in 3 months -ESR: 50 trending down from 75, UTI -urine: 1+ leuk esterase, Positive Gram Neg Rods -Rocephin 1gm q12h HTN -Amlodipine 5mg po daily -Bisoprolol 10mg po daily -HCTZ 25mg po daily DMII -HgA1C: 10.6 -gluc 305 -accuchecks -ISS -hypoglycemia protocol -as per patient patient takes regular insulin 60 u in am and 55u in pm-- calculate 24 hour insulin sliding scale use -endocrine consulted, Dr. Nuñez, help appreciated: Novolin 24 units before breakfast, 14 before dinner. basal insulin 20 units NPH at bedtime HLD -Triglycerides 222 Cholesterol 136 LDL 71 HDL 24 -Diet management -[place] 3 po BID Constipation -Colace 100mg po TID PPX: -SCDs -Heparin 5000u sc q8h -Pepcid 20mg po daily -Florastor 250mg po BID <Jason Ernandez - Last Filed: 06/12/18 22:46> Objective - Vital Signs/Intake and Output Vital Signs (last 24 hours): Temp Pulse Resp BP Pulse Ox 97.9 F 78 20 105/61 95 06/12/18 16:00 06/12/18 16:00 06/12/18 16:00 06/12/18 16:00 06/12/18 16:00 - Medications Medications: Current Medications Acetylcysteine (Acetylcysteine 20%) 4 ml INH DAILY [facility] Last Admin: 06/11/18 07:46 Dose: 4 ml Albuterol/Ipratropium (Duoneb 3 Mg/0.5 Mg (3 Ml) Ud) 3 ml INH DAILY [facility] Last Admin: 06/11/18 07:46 Dose: 3 ml Amlodipine Besylate (Norvasc) 5 mg PO DAILY [facility] Last Admin: 06/12/18 09:51 Dose: 5 mg Bisoprolol Fumarate (Zebeta) 10 mg PO DAILY [facility] Last Admin: 06/12/18 09:50 Dose: 10 mg Dextrose (Dextrose 50% Inj) 0 ml IV STAT PRN; Protocol PRN Reason: Hypoglycemia Protocol Dextrose (Glutose 15) 0 gm PO ONCE PRN; Protocol PRN Reason: Hypoglycemia Protocol Docusate Sodium (Colace) 100 mg PO TID [facility] Last Admin: 06/12/18 18:07 Dose: 100 mg Famotidine (Pepcid) 20 mg PO DAILY [facility] Last Admin: 06/12/18 09:51 Dose: 20 mg Glipizide (Glucotrol) 10 mg PO ACBD [facility] Last Admin: 06/12/18 17:30 Dose: 10 mg Glucagon (Glucagen Diagnostic Kit) 0 mg IM STAT PRN; Protocol PRN Reason: Hypoglycemia Protocol Heparin Sodium (Porcine) (Heparin) 5,000 units SC Q8 [facility] Last Admin: 06/12/18 21:40 Dose: 5,000 units Hydrochlorothiazide (Hydrodiuril) 25 mg PO DAILY [facility] Last Admin: 06/12/18 09:51 Dose: 25 mg Dextrose (Dextrose 5% In Water 1000 Ml) 1,000 mls @ 0 mls/hr IV .Q0M PRN; Protocol; Per Protocol PRN Reason: Hypoglycemia Protocol Ceftriaxone Sodium (Rocephin Iv 1 Gm Duplex) 50 mls @ 100 mls/hr IVPB Q12H [facility] PRN Reason: Protocol Last Admin: 06/12/18 20:41 Dose: 100 mls/hr Azithromycin 500 mg/ Sodium (Chloride) 250 mls @ 166.667 mls/hr IVPB DAILY [facility] PRN Reason: Protocol Last Admin: 06/12/18 09:51 Dose: 166.667 mls/hr Insulin Aspart (Novolog Mix 70/30 (70/30 Units/Ml)) 20 units SC ACD [facility] Last Admin: 06/12/18 17:30 Dose: 20 units Insulin Human Isoph/Insulin Regular (Novolin 70/30 (70/30 Units/Ml) 10 Ml) 30 units SC ACB [facility] Insulin Human NPH (Novolin N) 20 unit SC HS [facility] Last Admin: 06/12/18 21:40 Dose: 20 units Insulin Human Regular (Novolin R) 0 unit SC ACHS [facility] PRN Reason: Protocol Last Admin: 06/12/18 21:41 Dose: Not Given Levothyroxine Sodium (Synthroid) 50 mcg PO DAILY@0630 [facility] Metformin HCl (Glucophage) 850 mg PO BID [facility] Last Admin: 06/12/18 18:07 Dose: 850 mg Vixtv-9-Xyxn Ethyl Esters (Lovaza) 1 gm PO BID [facility] Last Admin: 06/12/18 18:07 Dose: 1 gm Saccharomyces Boulardii (Florastor) 250 mg PO BID [facility] Last Admin: 06/12/18 18:06 Dose: 250 mg - Labs Labs: 06/12/18 07:03 06/12/18 07:03 Attending/Attestation - Attestation I have personally seen and examined this patient.: Yes I have fully participated in the care of the patient.: Yes I have reviewed all pertinent clinical information, including history, physical exam and plan: Yes Notes (Text): 06/12/18 22:24 Patient was seen and examined at 2:45 PM 06/12/18 667 A with the help of Nurse Vijaya who provided Wolof translation. Exam, assessment and plan were gone over with the resident. Also on ROS: Patient was very teary as she feels that she is going to here in the [place]. I reassured her that I did not believe that was case and what the plan of care was : we needed evaluation by [employer] to see if Bronchoscopy could be performed given that patient was not able to provide sputum despite induction. She offered NO other complaints upon FULL ROS HEENT, Cardio, Resp, GI, Ext, CN II through XII were unremarkable F/U CELE, ANCA, Blastomyces AB, Histoplasma Ab, Legionalle, Mycoplasma F/U reading of right lower anterior arm PPD on 06/13/18 and if negative then we may discontinue respiratory isolation. Patient has a distant history of BCG vaccination in [place] > 15 years and therefore PPD should be read as if she never had it placed. F/U Quanteferon Gold Test F/U HIV Test Patient is being treated for E. coli UTI (as per Urine Culture 06/10/18) with Ceftriaxone 1 gm IV Q12H. Considering her comorbidities, treat for 7 days and repeat the urine culture. Please note that patient is also on Azithromycin along with Ceftriaxone to cover for CAP. F/U Antiperoxidase Abs for further evaluation of elevated TSH but normal T4 and discuss with Dr. Nuñez. She has started patient on Levothyroxine 50 mg PO 1x/day. For her DM, she is currently on Novolog (70/30) SC 30 units SC ACB and 20 units SC ACD and NPH 20 units at Bedtime. She is also on Glipizde 10 mg PO AC Breakfast and Dinner and Metformin 850 mg PO 2x/day. Considering her DM, she should be on an CHARO I and therefore Norvasc was discontinued and Lisinopril 10 mg PO 1x/day was added to the HCTZ and Bisoprolol. She was also started on a statin because of the DM: Crestor 2.5 mg PO HS which should be changed over to Atorvastatin 5 mg PO HS upon discharge For the 4 mm Subpleural LLL nodule patient will need repeat CT Chest in about 12 months. Spoke with ID Dr. Roberts and she too agrees with me that we need likely bronchoscopy for further evaluation and sputum samples from this patient. I have called [employer] Dr. Alexis's office and spoke with Office Staff Anastasiia and provided patient information (as well as my cell phone) and informed her that this consult for Dr. Alexis was placed on 06/10/18. She assured me that he had just left his office and on his way to [facility] [place]. Jason Ernandez D.O.
[2018-06-12 08:15] LABS: T4 9.21 ug/dL (5.5-11.0)
--- NOTE | 2018-06-12 08:40 | CON ---
Copied To: Ami Nuñez MD Attending MD: Ami Nuñez MD DATE: 06/11/2018 ENDOCRINOLOGY CONSULT LOCATION: Room 667. HISTORY OF PRESENT ILLNESS: This is a 58-year-old female with known history of type 2 diabetes and hypertension, on oral hypoglycemic therapy and is now being referred for diabetic evaluation because of recent hyperglycemic acceleration thereof. PAST MEDICAL HISTORY: History of type 2 diabetes, currently on a combination of metformin given 850 mg daily and insulin NPH taken at 60 units once daily is given, history of hypertension and dyslipidemia. FAMILY HISTORY: Positive for diabetes and hypertension. SOCIAL HISTORY: Patient has supportive family. No known substance use. REVIEW OF SYSTEMS: As mentioned above, admits to bifrontal headaches and visual blurring with generalized body weakness and episodic bouts of dizziness and lightheadedness. No chest pain or palpitations, but admits to fever, chills and episodic productive cough. Her oral intake has been variable with nausea, dyspepsia, and habitual constipation. Also admits to persistent polyuria, nocturia as noted. PHYSICAL EXAMINATION: GENERAL: This is an overweight female in no apparent distress. VITAL SIGNS: Blood pressure 150/90, pulse of 80 beats per minute and regular, temperature 98, respirations 20, height is 5 feet 3 inches, weight is 200 pounds. HEENT: Head normocephalic. Eyes anicteric with pink conjunctivae. Funduscopy not possible at this time. Ears, nose, and throat otherwise normal. NECK: Supple. Thyroid gland is normal in size. No carotid bruits or cervical adenopathy. CARDIOPULMONARY: Some adynamic precordium. S1, S2 is rapid and regular. LUNGS: Clear to auscultation. ABDOMEN: Flat, soft with positive bowel sounds. EXTREMITIES: No peripheral edema. Pulses are +2 bilaterally. LABORATORY DATA: Her chemistries showed a BUN of 14, sodium 139, potassium 4, chloride 99, CO2 of 31, glucose 224, and creatinine 0.9. Her hemoglobin A1c is 10.6%. Her TSH is 7.62. ASSESSMENT: This is a 58-year-old female with recent uncontrolled and decompensated type 2 insulin-requiring diabetes with marked hyperglycemic acceleration and suboptimal metabolic control as noted on the outpatient and is now being referred for diabetic evaluation and management. Moreover, she also has fairly hypothyroidism, most likely related to underlying autoimmune thyroiditis as noted thereof. PLAN OF MANAGEMENT: We will modify her current insulin regimen and start her on a combination of Novolin NPH given as 24 units before breakfast and 14 units before dinner, as ordered. We will also add basal insulin given as 20 units of NPH at bedtime daily as given. We will titrate incrementally as indicated to optimize metabolic control. We will also modify her coverage scale to obviate hypoglycemia and detailed orders have been given. We will obtain serial chemistries and supplement accordingly as needed. We will follow. Ami Nuñez MD
[2018-06-12] MEDS: cefTRIAXone IV 1 gm in Dextros 50 ML IVPB SCH ×2 (08:49→20:41)
[2018-06-12] MEDS: (Novolin R) Insulin Human Regular 100 units/ml vial SC SCH ×4 (08:50→21:41)
[2018-06-12] MEDS: Saccharomyces Boulardi 250 mg Cap PO SCH ×2 (09:50→18:06)
[2018-06-12] MEDS: Azithromycin 500 MG in Sodium Chloride 0.9% 250 ML IVPB SCH (09:51)
[2018-06-12] MEDS: Omega-3-Acid Ethyl Esters 1 GM Cap PO SCH ×2 (09:51→18:07)
[2018-06-12] MEDS ORDERED: Pneumococcal 23-Valent Vaccine IM ONE (10:00)
--- NOTE | 2018-06-12 12:18 | CARD ---
APPROVED REPORT Date of service: 06/10/2018 EKG Measurement Heart [id number] <Conclusion> Sinus tachycardia Possible Inferior infarct, age undetermined Abnormal ECG
[2018-06-12] MEDS ORDERED: (Novolog Mix 70/30) Insulin Aspart/Insulin Aspar 100 units/ml SC SCH ×2 (16:30)
--- NOTE | 2018-06-12 18:21 | CP.PCM.PN ---
Subjective - Subjective Subjective: dictated Objective - Vital Signs/Intake and Output Vital Signs (last 24 hours): Temp Pulse Resp BP Pulse Ox 97.9 F 78 20 105/61 95 06/12/18 16:00 06/12/18 16:00 06/12/18 16:00 06/12/18 16:00 06/12/18 16:00 - Medications Medications: Current Medications Acetylcysteine (Acetylcysteine 20%) 4 ml INH [facility]ILY [facility] Last Admin: 06/11/18 07:46 Dose: 4 ml Albuterol/Ipratropium (Duoneb 3 Mg/0.5 Mg (3 Ml) Ud) 3 ml INH DAILY [facility] Last Admin: 06/11/18 07:46 Dose: 3 ml Amlodipine Besylate (Norvasc) 5 mg PO DAILY [facility] Last Admin: 06/12/18 09:51 Dose: 5 mg Bisoprolol Fumarate (Zebeta) 10 mg PO DAILY [facility] Last Admin: 06/12/18 09:50 Dose: 10 mg Dextrose (Dextrose 50% Inj) 0 ml IV STAT PRN; Protocol PRN Reason: Hypoglycemia Protocol Dextrose (Glutose 15) 0 gm PO ONCE PRN; Protocol PRN Reason: Hypoglycemia Protocol Docusate Sodium (Colace) 100 mg PO TID [facility] Last Admin: 06/12/18 18:07 Dose: 100 mg Famotidine (Pepcid) 20 mg PO DAILY [facility] Last Admin: 06/12/18 09:51 Dose: 20 mg Glipizide (Glucotrol) 10 mg PO ACBD [facility] Last Admin: 06/12/18 17:30 Dose: 10 mg Glucagon (Glucagen Diagnostic Kit) 0 mg IM STAT PRN; Protocol PRN Reason: Hypoglycemia Protocol Heparin Sodium (Porcine) (Heparin) 5,000 units SC Q8 [facility] Last Admin: 06/12/18 14:34 Dose: 5,000 units Hydrochlorothiazide (Hydrodiuril) 25 mg PO DAILY [facility] Last Admin: 06/12/18 09:51 Dose: 25 mg Dextrose (Dextrose 5% In Water 1000 Ml) 1,000 mls @ 0 mls/hr IV .Q0M PRN; Protocol; Per Protocol PRN Reason: Hypoglycemia Protocol Ceftriaxone Sodium (Rocephin Iv 1 Gm Duplex) 50 mls @ 100 mls/hr IVPB Q12H [facility] PRN Reason: Protocol Last Admin: 06/12/18 08:49 Dose: 100 mls/hr Azithromycin 500 mg/ Sodium (Chloride) 250 mls @ 166.667 mls/hr IVPB DAILY [facility] PRN Reason: Protocol Last Admin: 06/12/18 09:51 Dose: 166.667 mls/hr Insulin Aspart (Novolog Mix 70/30 (70/30 Units/Ml)) 20 units SC ACD [facility] Last Admin: 06/12/18 17:30 Dose: 20 units Insulin Human Isoph/Insulin Regular (Novolin 70/30 (70/30 Units/Ml) 10 Ml) 30 units SC ACB [facility] Insulin Human NPH (Novolin N) 20 unit SC HS [facility] Insulin Human Regular (Novolin R) 0 unit SC ACHS [facility] PRN Reason: Protocol Last Admin: 06/12/18 17:30 Dose: Not Given Levothyroxine Sodium (Synthroid) 50 mcg PO DAILY@0630 [facility] Metformin HCl (Glucophage) 850 mg PO BID [facility] Last Admin: 06/12/18 18:07 Dose: 850 mg Odbek-7-Kquc Ethyl Esters (Lovaza) 1 gm PO BID [facility] Last Admin: 06/12/18 18:07 Dose: 1 gm Saccharomyces Boulardii (Florastor) 250 mg PO BID [facility] Last Admin: 06/12/18 18:06 Dose: 250 mg - Labs Labs: 06/12/18 07:03 06/12/18 07:03
--- NOTE | 2018-06-12 20:14 | PN ---
Copied To: Ami Nuñez MD Attending MD: Ami Nuñez MD DATE: 06/12/2018 ENDO FOLLOW UP NOTE LOCATION: In room 667. SUBJECTIVE: This is a 58-year-old female with recent uncontrolled type 2 insulin-requiring diabetes, now being followed closely for metabolic management. She also has a pulmonary cavitary lesion with ongoing IV antibiotic management was noted. Moreover, she also has an incidental finding of early hypothyroidism and has been started on Levothyroxine replacement therapy as noted. LABORATORY DATA: Her glycemic levels are still fluctuating and ranging from 314 to 319 mg/dL. Her latest chemistry showed a BUN of 14, sodium 136, potassium 4.2, chloride 98, CO2 of 27, glucose 305, and creatinine 0.9. Her latest thyroid study showed a T4 of 9.21 with the TSH of 5.67 and a free T4 of 0.86. ASSESSMENT AND PLAN: This is a 58-year-old female with uncontrolled and decompensated type 2 insulin-requiring diabetes with marked hyperglycemic accelerations and is now being followed closely for metabolic management. We will modify her prior insulin regimen at this time and increase the Novolin 70/30 to 30 units before breakfast and 20 units before dinner to start today. We will also increase the bedtime insulin with NPH given as 20 units subcutaneously at bedtime daily as given. We will continue also the oral hypoglycemic therapy as noted with metformin 850 mg b.i.d. and glipizide given as 10 mg b.i.d. before meals as ordered. We will obtain serial chemistries and supplement accordingly as needed. We will follow. Ami Nuñez MD
[2018-06-12] MEDS ORDERED: (Novolin N) Insulin Human Isophane (NPH) 100 u/ml 10 ml vial SC SCH ×2 (22:00)
--- NOTE | 2018-06-13 06:18 | PN ---
Copied To: Clotilde Roberts MD Attending MD: Clotilde Roberts MD DATE: 06/12/2018 INFECTIOUS DISEASE FOLLOWUP SUBJECTIVE: The patient says she is feeling better. She has no . She is not coughing. PHYSICAL EXAMINATION: VITAL SIGNS: T-max is 97.9, pulse 78, blood pressure 105/61, respirations are 20. HEENT: Head is atraumatic, normocephalic. NECK: Supple. LUNGS: Clear. HEART: S1, S2 are regular. ABDOMEN: Soft, nontender. No guarding, no rigidity present. She is obese. EXTREMITIES: Have no edema. LABORATORY DATA: White count is 6.1. ESR is 50, it was 75 on 06/11/2018. I cannot understand it is decreasing that fast. Glucose was 305. Alkaline phosphatase was 139. C-reactive protein was 179, now it is 68.80. Procalcitonin level is 0.86, so it is elevated. TSH is high, but T4 is normal, so the procalcitonin level is elevated to 0.86. Legionella. Cryptococcal antigen is negative. The patient has a cavitary lesion in the lungs, and we need a pulmonary evaluation. PPD was negative 48 hours, and we will see tomorrow. We have also sent a Gold QuantiFERON test and sent some fungal studies and we will follow. Her hemoglobin A1c was 10.6. IMPRESSION AND PLAN: The patient has a cavitary lesion in the lung and has uncontrolled diabetes. 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 Etiology of this cavity is unknown at this time. The patient is in airborne precaution. Clotilde Roberts MD
[2018-06-13] MEDS ORDERED: (Novolin 70/30) NPH/Regular 70/30 Units/ml 10 ml vial SC SCH (07:30)
[2018-06-13] MEDS: cefTRIAXone IV 1 gm in Dextros 50 ML IVPB SCH ×2 (08:05→19:47)
[2018-06-13] MEDS: (Novolin R) Insulin Human Regular 100 units/ml vial SC SCH ×4 (08:10→21:01)
[2018-06-13 08:17] LABS: BASO % 0.6 % (0.0-2.0); EOS # 0.3 K/uL (0.0-0.7); EOS % 3.3 % (0.0-4.0); HEMOGLOBIN 14.5 g/dL (11.0-16.0); LYMPH # 2.5 K/uL (1.0-4.3); LYMPH % 28.1 % (20.0-40.0); MEAN CELL VOLUME 85.9 fL (81.0-99.0); MEAN CORPUSCULAR HGB CONC 33.7 g/dL (33.0-37.0); MONO # 0.8 K/uL (0.0-0.8); MONO % 8.6 % (0.0-10.0); NEUT # 5.3 K/uL (1.8-7.0); NEUT % 59.4 % (50.0-75.0); NRBC % 0.1 % (0.0-2.0); RED CELL DISTRIBUTION WIDTH 14.9 % (11.5-14.5); WHITE BLOOD COUNT 8.8 K/uL (4.8-10.8)
--- NOTE | 2018-06-13 08:27 | CP.PCM.PN ---
<Christiano Yates - Last Filed: 06/13/18 16:44> Subjective - Date & Time of Evaluation Date of Evaluation: 06/13/18 Time of Evaluation: 10:00 - Subjective Subjective: Medicine note for hospitalist service Pt seen and examined at bedside. Pt reports no complaints overnight. Pt wants to leave and go home. Pt denies chest pain, SOb, cough, wheezing, dizziness, nightsweats, nausea or vomitting. Pt has had normal bowel movement yesterday. Objective - Vital Signs/Intake and Output Vital Signs (last 24 hours): Temp Pulse Resp BP Pulse Ox 98.3 F 88 20 125/81 94 L 06/13/18 07:00 06/13/18 07:00 06/13/18 07:00 06/13/18 07:00 06/13/18 07:00 Intake and Output: 06/13/18 06/13/18 06:59 18:59 Intake Total 350 Balance 350 - Medications Medications: Current Medications Acetylcysteine (Acetylcysteine 20%) 4 ml INH DAILY [facility] Last Admin: 06/11/18 07:46 Dose: 4 ml Albuterol/Ipratropium (Duoneb 3 Mg/0.5 Mg (3 Ml) Ud) 3 ml INH DAILY [facility] Last Admin: 06/11/18 07:46 Dose: 3 ml Bisoprolol Fumarate (Zebeta) 10 mg PO DAILY [facility] Last Admin: 06/12/18 09:50 Dose: 10 mg Dextrose (Dextrose 50% Inj) 0 ml IV STAT PRN; Protocol PRN Reason: Hypoglycemia Protocol Dextrose (Glutose 15) 0 gm PO ONCE PRN; Protocol PRN Reason: Hypoglycemia Protocol Docusate Sodium (Colace) 100 mg PO TID [facility] Last Admin: 06/12/18 18:07 Dose: 100 mg Famotidine (Pepcid) 20 mg PO DAILY [facility] Last Admin: 06/12/18 09:51 Dose: 20 mg Glipizide (Glucotrol) 10 mg PO ACBD [facility] Last Admin: 06/12/18 17:30 Dose: 10 mg Glucagon (Glucagen Diagnostic Kit) 0 mg IM STAT PRN; Protocol PRN Reason: Hypoglycemia Protocol Heparin Sodium (Porcine) (Heparin) 5,000 units SC Q8 [facility] Last Admin: 06/13/18 07:00 Dose: 5,000 units Hydrochlorothiazide (Hydrodiuril) 25 mg PO DAILY [facility] Last Admin: 06/12/18 09:51 Dose: 25 mg Dextrose (Dextrose 5% In Water 1000 Ml) 1,000 mls @ 0 mls/hr IV .Q0M PRN; Protocol; Per Protocol PRN Reason: Hypoglycemia Protocol Ceftriaxone Sodium (Rocephin Iv 1 Gm Duplex) 50 mls @ 100 mls/hr IVPB Q12H [facility] PRN Reason: Protocol Last Admin: 06/12/18 20:41 Dose: 100 mls/hr Azithromycin 500 mg/ Sodium (Chloride) 250 mls @ 166.667 mls/hr IVPB DAILY [facility] PRN Reason: Protocol Last Admin: 06/12/18 09:51 Dose: 166.667 mls/hr Insulin Aspart (Novolog Mix 70/30 (70/30 Units/Ml)) 20 units SC ACD [facility] Last Admin: 06/12/18 17:30 Dose: 20 units Insulin Human Isoph/Insulin Regular (Novolin 70/30 (70/30 Units/Ml) 10 Ml) 30 units SC ACB [facility] Insulin Human NPH (Novolin N) 20 unit SC HS [facility] Last Admin: 06/12/18 21:40 Dose: 20 units Insulin Human Regular (Novolin R) 0 unit SC ACHS [facility] PRN Reason: Protocol Last Admin: 06/12/18 21:41 Dose: Not Given Levothyroxine Sodium (Synthroid) 50 mcg PO DAILY@0630 [facility] Lisinopril (Zestril) 10 mg PO DAILY [facility] Metformin HCl (Glucophage) 850 mg PO BID [facility] Last Admin: 06/12/18 18:07 Dose: 850 mg [id number] Ethyl Esters (Lovaza) 1 gm PO BID [facility] Last Admin: 06/12/18 18:07 Dose: 1 gm Rosuvastatin Calcium (Crestor) 2.5 mg PO HS [facility] Saccharomyces Boulardii (Florastor) 250 mg PO BID [facility] Last Admin: 06/12/18 18:06 Dose: 250 mg - Labs Labs: 06/13/18 08:08 06/12/18 07:03 - Head Exam Head Exam: ATRAUMATIC, NORMAL INSPECTION - Eye Exam Eye Exam: EOMI, Normal appearance. absent: Scleral icterus - Neck Exam Neck Exam: absent: Lymphadenopathy - Respiratory Exam Respiratory Exam: Clear to Ausculation Bilateral, NORMAL BREATHING PATTERN. absent: Rales, Wheezes, Respiratory Distress - Cardiovascular Exam Cardiovascular Exam: RRR, +S2. absent: Murmur - GI/Abdominal Exam GI & Abdominal Exam: Soft, Normal Bowel Sounds. absent: Tenderness - Extremities Exam Extremities Exam: Normal Inspection. absent: Calf Tenderness, Pedal Edema, Tenderness - Back Exam Back Exam: NORMAL INSPECTION - Neurological Exam Neurological Exam: Alert, Awake, CN II-XII Intact, Oriented x3 Neuro motor strength exam: Left Upper Extremity: 5, Right Upper Extremity: 5, Left Lower Extremity: 5, Right Lower Extremity: 5 - Psychiatric Exam Psychiatric exam: Normal Affect, Normal Mood. absent: Anxious - Skin Skin Exam: Dry, Normal Color Assessment and Plan - Assessment and Plan (Free Text) Assessment: 58yo Female admitted for possible TB vs fungal vs infectious pneumonia. Plan: TB vs fungal vs infection -Azithromycin 500mg ivpb daily -Ceftriaxone 1gm q12h -Chest CT: 2.1 cm mass is identified in the right upper lobe within a cavitary thin walled structure suspicious for an aspergilloma or other fungal lesion. Neoplasm is not favored but is not completely excluded. Mild but diffuse ground glass opacity scattered bilaterally, nonspecific finding but could reflect active interstitial pulmonary disease. Clinically correlate further. No pleural or pericardial effusion or significant lymphadenopathy. 4mm subpleural nodule left lower lobe. Clinically correlate as to risk factors for developing lung cancer Incidental Cholelithiasis. Punctate intrarenal calculus upper pole right kidney. -ID, Dr. Roberts consulted, help appreciated: unable to obtain sputum, fungal culture, pulm consult -Pulm consulted, Dr. Álvarez -Influenza: neg -legionella: neg -cryptococcus: neg -mycoplasma, strep pneumo -Quantiferon gold pending -PPD (48hr neg) -obtain AFB sputum x 3 (using mucomyst and duonebs to initiate sputum production )- 1st sample obtained 06/13/18 -HIV1/2 negative -r/o rheumatologic causes -CRP: 68, trending down from 179.90 -TSH: 5.2, Free T4: 1.15, Thyroxine:9.21 - will need to be repeated in 3 months -ESR: 50 trending down from 75, UTI -urine: 1+ leuk esterase, Positive Gram Neg Rods -Rocephin 1gm q12h -f/u repeat UA, UC HTN -Amlodipine 5mg po daily -Bisoprolol 10mg po daily -HCTZ 25mg po daily DMII -HgA1C: 10.6 -gluc 242 random -accuchecks -ISS -hypoglycemia protocol -as per patient patient takes regular insulin 60 u in am and 55u in pm-- calculate 24 hour insulin sliding scale use -endocrine consulted, Dr. Nuñez, help appreciated: Novolin 20 units before breakfast, 20 before dinner. basal insulin 20 units NPH at bedtime HLD -Triglycerides 222 Cholesterol 136 LDL 71 HDL 24 -Diet management -[place] 3 po BID Constipation -Colace 100mg po TID PPX: -SCDs -Heparin 5000u sc q8h -Pepcid 20mg po daily -Florastor 250mg po BID Dispo: Pt pending AFS, need sputum samples, Possible TB. Pending pulm consult <Shireen Rhodes V - Last Filed: 06/13/18 22:54> Objective - Vital Signs/Intake and Output Vital Signs (last 24 hours): Temp Pulse Resp BP Pulse Ox 98.1 F 87 20 123/71 96 06/13/18 15:25 06/13/18 15:25 06/13/18 15:25 06/13/18 15:25 06/13/18 15:25 - Medications Medications: Current Medications Acetylcysteine (Acetylcysteine 20%) 4 ml INH DAILY [facility] Last Admin: 06/11/18 07:46 Dose: 4 ml Albuterol/Ipratropium (Duoneb 3 Mg/0.5 Mg (3 Ml) Ud) 3 ml INH DAILY [facility] Last Admin: 06/11/18 07:46 Dose: 3 ml Bisoprolol Fumarate (Zebeta) 10 mg PO DAILY [facility] Last Admin: 06/13/18 10:15 Dose: 10 mg Dextrose (Dextrose 50% Inj) 0 ml IV STAT PRN; Protocol PRN Reason: Hypoglycemia Protocol Dextrose (Glutose 15) 0 gm PO ONCE PRN; Protocol PRN Reason: Hypoglycemia Protocol Docusate Sodium (Colace) 100 mg PO TID [facility] Last Admin: 06/13/18 17:45 Dose: 100 mg Famotidine (Pepcid) 20 mg PO DAILY [facility] Last Admin: 06/13/18 10:34 Dose: 20 mg Glipizide (Glucotrol) 10 mg PO ACBD [facility] Last Admin: 06/13/18 17:45 Dose: 10 mg Glucagon (Glucagen Diagnostic Kit) 0 mg IM STAT PRN; Protocol PRN Reason: Hypoglycemia Protocol Hydrochlorothiazide (Hydrodiuril) 25 mg PO DAILY [facility] Last Admin: 06/13/18 10:34 Dose: Not Given Azithromycin 500 mg/ Sodium (Chloride) 250 mls @ 166.667 mls/hr IVPB DAILY [facility] PRN Reason: Protocol Last Admin: 06/13/18 09:10 Dose: 166.667 mls/hr Insulin Aspart (Novolog Mix 70/30 (70/30 Units/Ml)) 24 units SC ACD [facility] Last Admin: 06/13/18 17:46 Dose: 24 units Insulin Human Isoph/Insulin Regular (Novolin 70/30 (70/30 Units/Ml) 10 Ml) 34 units SC ACB [facility] Insulin Human NPH (Novolin N) 24 unit SC HS [facility] Last Admin: 06/13/18 21:26 Dose: 24 units Insulin Human Regular (Novolin R) 0 unit SC ACHS [facility] PRN Reason: Protocol Last Admin: 06/13/18 21:01 Dose: Not Given Levothyroxine Sodium (Synthroid) 50 mcg PO DAILY@0630 [facility] Lisinopril (Zestril) 10 mg PO DAILY [facility] Last Admin: 06/13/18 10:34 Dose: 10 mg Metformin HCl (Glucophage) 850 mg PO BID [facility] Last Admin: 06/13/18 17:45 Dose: 850 mg [id number] Ethyl Esters (Lovaza) 1 gm PO BID [facility] Last Admin: 06/13/18 17:45 Dose: 1 gm Rosuvastatin Calcium (Crestor) 2.5 mg PO HS [facility] Last Admin: 06/13/18 21:25 Dose: 2.5 mg Saccharomyces Boulardii (Florastor) 250 mg PO BID [facility] Last Admin: 06/13/18 17:45 Dose: 250 mg - Labs Labs: 06/13/18 08:08 06/13/18 08:08 Attending/Attestation - Attestation I have personally seen and examined this patient.: Yes I have fully participated in the care of the patient.: Yes I have reviewed all pertinent clinical information, including history, physical exam and plan: Yes Notes (Text): Patient seen, examined, and case discussed with day-time resident. Patient seen and examined with patient at bedside. Patient denies cough presently. She has been able to provide her first sputum sample; discussed with Rn who send it down for first AFB culture. pending quantaferon. Patient is pending pulmonary consult. I has asked resident to call office and cost clerk to reconsult pulmonary given concern for cavitary lesion noted on CT. Patient denies urinary complaints. Will repeat UA/Urine culture to show clearance. I have re-ordered antibiotics. Assessment/Plan 1) Pulmonary Cavitary Lesion Pulmonary Nodules Assessment/Plan * Airborne isolation * ID, Dr. Roberts consulted, help appreciated * Pulmonary, Dr. Álvarez-->f/u evaluation * Chest CT: 2.1 cm mass is identified in the right upper lobe within a cavitary thin walled structure suspicious for an aspergilloma or other fungal lesion. Neoplasm is not favored but is not completely excluded. Mild but diffuse ground glass opacity scattered bilaterally, nonspecific finding but could reflect active interstitial pulmonary disease. Clinically correlate further. No pleural or pericardial effusion or significant lymphadenopathy. 4mm subpleural nodule left lower lobe. Clinically correlate as to risk factors for developing lung cancer. Incidental Cholelithiasis. Punctate intrarenal calculus upper pole right kidney. * Chest Xray (06/10/18): nodule mid right lung zone laterally. Please see separate chest CT also performed 06/10/18 further evaluating this abnormality. Cardiomegaly. * f/u Quantiferon gold * PPD (f/u read): negative (24 hour read); 2nd read tonight. (right upper extremity) * * Order for AFB sputum x 3 (using mucomyst and duonebs to induce sputum production) * 1st collected AFB (06/13/18)-->f/u * I have re-ordered until 06/17 until we have 3 total samples. * Sputum culture * Order for HIV1/2 * ESR: 70-->50 * CELE; negative * Proteinase <1.0 * Myeloperoxidase ab <1.0 * Legionella: negative, mycoplasma: negative, negative flu * Quantaferon: insufficient sample due to sample; will re-order. * c/w Azithromycin 500mg ivpb daily (active since 06/11/18) * c/w Rocephin 1gm q12h (active since 06/10/18) * c/w Florastor 250mg po BID 2) E. Coli UTI Assessment/Plan * urine: 1+ leuk esterase * Urine culture: E. Coli (06/10/18) * Start Rocephin 1gm q12h * Repeat UA and urine culture 06/13/18) 3) Hypertension Assessment/Plan * Bisoprolol 10mg po daily * Lisinopril 10mg PO daily * held HCTZ 25mg po daily given elevated HCO3 4) DMII, insulin dependent Assessment/Plan * Endocrinology (Dr. Nuñez) on board--> help appreciated * accuchecks QAC and HSI * RISS * Novolin 24 units subqHS * Novolin 70/30 34 units subqACB * Novolin 70/30 24 units subqACD * hypoglycemia protocol * HgA1C: 10.6 * Crestor 2.5mg POqHS * Metformin 850mg PO BID * Lisinopril 10mg PO daily 5) HLD Assessment/Plan * Triglycerides 222 Cholesterol 136 LDL 71 HDL 24 * Will start [place] 3 po BID-->will need OTC omega 3 FA on discharge 6) Constipation Assessment/Plan * Colace 100mg po TID * Monitor for bowel movement 7) Hypothyroidism Assessment/Plan * Synthroid 50mcg PO qAM 8) Prophylaxis: * SCDs * Heparin 5000u sc q8h * Pepcid 20mg po daily Disposition: F/u AFB smears; 1st collected; reorder quantaferon, PPD 2nd read, and f/u pulm evaluation.
[2018-06-13 08:36] LABS: ALB/GLOB RATIO 1.1 (1.0-2.1); ALBUMIN 4.1 g/dL (3.5-5.0); CALCIUM 9.6 mg/dl (8.6-10.4)
[2018-06-13] MEDS: Azithromycin 500 MG in Sodium Chloride 0.9% 250 ML IVPB SCH (09:10)
[2018-06-13] MEDS: Omega-3-Acid Ethyl Esters 1 GM Cap PO SCH ×2 (10:33→17:45)
[2018-06-13] MEDS: Saccharomyces Boulardi 250 mg Cap PO SCH ×2 (10:35→17:45)
[2018-06-13] MEDS: (Novolog Mix 70/30) Insulin Aspart/Insulin Aspar 100 units/ml SC SCH (17:46)
--- NOTE | 2018-06-13 18:06 | CP.PCM.CON ---
History of Present Illness - History of Present Illness History of Present Illness: admitted with UTI and fever found to have a thin walled mass RUL ant. chest; pt states she had a CXR in [place] approx 1 yrs ago which was neg. no cough, no sputum, no weight loss, no sweats, no chronic symptoms prior to admission currently feels well non smoker, however mother smoked at home, with exposure to smoker till age 23 no history of TB personally or in family Review of Systems - Review of Systems All systems: reviewed and no additional remarkable complaints except Past Patient History - Infectious Disease Hx of Infectious Diseases: None - Past Medical History & Family History Past Medical History?: Yes - Past Social History Smoking Status: Never Smoked - CARDIAC Hx Hypertension: Yes - ENDOCRINE/METABOLIC Hx Diabetes Insipidus: Yes - HEMATOLOGICAL/ONCOLOGICAL Hx Blood Disorders: No - INTEGUMENTARY Hx Dermatological Problems: No - MUSCULOSKELETAL/RHEUMATOLOGICAL Hx Musculoskeletal Disorders: No Hx Falls: No - GASTROINTESTINAL Hx Gastrointestinal Disorders: No - GENITOURINARY/GYNECOLOGICAL Hx Genitourinary Disorders: No - PSYCHIATRIC Hx Substance Use: No - SURGICAL HISTORY Hx Appendectomy: Yes - ANESTHESIA Hx Anesthesia: Yes Hx Anesthesia Reactions: No Hx Malignant Hyperthermia: No Has any member of the family had a problem w/ anesthesia?: No Meds Allergies/Adverse Reactions: Allergies Allergy/AdvReac Type Severity Reaction Status Date / Time No Known Allergies Allergy Unverified 06/10/18 12:13 - Medications Medications: Current Medications Acetylcysteine (Acetylcysteine 20%) 4 ml INH DAILY [facility] Last Admin: 06/11/18 07:46 Dose: 4 ml Albuterol/Ipratropium (Duoneb 3 Mg/0.5 Mg (3 Ml) Ud) 3 ml INH DAILY [facility] Last Admin: 06/11/18 07:46 Dose: 3 ml Bisoprolol Fumarate (Zebeta) 10 mg PO DAILY [facility] Last Admin: 06/13/18 10:15 Dose: 10 mg Dextrose (Dextrose 50% Inj) 0 ml IV STAT PRN; Protocol PRN Reason: Hypoglycemia Protocol Dextrose (Glutose 15) 0 gm PO ONCE PRN; Protocol PRN Reason: Hypoglycemia Protocol Docusate Sodium (Colace) 100 mg PO TID [facility] Last Admin: 06/13/18 17:45 Dose: 100 mg Famotidine (Pepcid) 20 mg PO DAILY [facility] Last Admin: 06/13/18 10:34 Dose: 20 mg Glipizide (Glucotrol) 10 mg PO ACBD [facility] Last Admin: 06/13/18 17:45 Dose: 10 mg Glucagon (Glucagen Diagnostic Kit) 0 mg IM STAT PRN; Protocol PRN Reason: Hypoglycemia Protocol Heparin Sodium (Porcine) (Heparin) 5,000 units SC Q8 [facility] Last Admin: 06/13/18 14:31 Dose: 5,000 units Hydrochlorothiazide (Hydrodiuril) 25 mg PO DAILY [facility] Last Admin: 06/13/18 10:34 Dose: Not Given Dextrose (Dextrose 5% In Water 1000 Ml) 1,000 mls @ 0 mls/hr IV .Q0M PRN; Protocol; Per Protocol PRN Reason: Hypoglycemia Protocol Ceftriaxone Sodium (Rocephin Iv 1 Gm Duplex) 50 mls @ 100 mls/hr IVPB Q12H [facility] PRN Reason: Protocol Last Admin: 06/13/18 08:05 Dose: 100 mls/hr Azithromycin 500 mg/ Sodium (Chloride) 250 mls @ 166.667 mls/hr IVPB DAILY [facility] PRN Reason: Protocol Last Admin: 06/13/18 09:10 Dose: 166.667 mls/hr Insulin Aspart (Novolog Mix 70/30 (70/30 Units/Ml)) 24 units SC ACD [facility] Last Admin: 06/13/18 17:46 Dose: 24 units Insulin Human Isoph/Insulin Regular (Novolin 70/30 (70/30 Units/Ml) 10 Ml) 34 units SC ACB [facility] Insulin Human NPH (Novolin N) 24 unit SC HS [facility] Insulin Human Regular (Novolin R) 0 unit SC ACHS [facility] PRN Reason: Protocol Last Admin: 06/13/18 17:23 Dose: Not Given Levothyroxine Sodium (Synthroid) 50 mcg PO DAILY@0630 [facility] Lisinopril (Zestril) 10 mg PO DAILY [facility] Last Admin: 06/13/18 10:34 Dose: 10 mg Metformin HCl (Glucophage) 850 mg PO BID [facility] Last Admin: 06/13/18 17:45 Dose: 850 mg Doguj-0-Twua Ethyl Esters (Lovaza) 1 gm PO BID [facility] Last Admin: 06/13/18 17:45 Dose: 1 gm Rosuvastatin Calcium (Crestor) 2.5 mg PO HS [facility] Saccharomyces Boulardii (Florastor) 250 mg PO BID [facility] Last Admin: 06/13/18 17:45 Dose: 250 mg Physical Exam - Constitutional Appears: No Acute Distress - Head Exam Head Exam: ATRAUMATIC, NORMOCEPHALIC - Eye Exam Eye Exam: PERRL - ENT Exam ENT Exam: Mucous Membranes Moist - Neck Exam Neck exam: Positive for: Normal Inspection - Respiratory Exam Respiratory Exam: NORMAL BREATHING PATTERN - Cardiovascular Exam Cardiovascular Exam: REGULAR RHYTHM, +S1, +S2 - GI/Abdominal Exam GI & Abdominal Exam: Normal Bowel Sounds Additional comments: obese - Neurological Exam Neurological exam: Alert, Oriented x3 - Psychiatric Exam Psychiatric exam: Normal Affect, Normal Mood - Skin Skin Exam: Intact Results - Vital Signs Recent Vital Signs: Last Vital Signs Temp 98.1 F 06/13/18 15:25 Pulse 87 06/13/18 15:25 Resp 20 06/13/18 15:25 BP 123/71 06/13/18 15:25 Pulse Ox 96 06/13/18 15:25 - Labs Result Diagrams: 06/13/18 08:08 06/13/18 08:08 Labs: Laboratory Results - last 24 hr 06/10/18 06/11/18 06/12/18 19:36 08:41 07:03 WBC RBC Hgb Hct MCV MCH MCHC RDW Plt Count MPV Neut % (Auto) Lymph % (Auto) [place] % (Auto) Eos % (Auto) Baso % (Auto) Neut # (Auto) Lymph # (Auto) [place] # (Auto) Eos # (Auto) Baso # (Auto) Sodium Potassium Chloride Carbon Dioxide Anion Gap BUN Creatinine Est GFR ( Amer) Est GFR (Non-Af Amer) POC Glucose (mg/dL) Random Glucose Calcium Phosphorus Magnesium Total Bilirubin AST ALT Alkaline Phosphatase Total Protein Albumin Globulin Albumin/Globulin Ratio CELE Screen Negative Proteinase 3 (PR3) <1.0 Myeloperoxidase Ab <1.0 Thyroperoxidase Ab 1 TB Test (QFT) Nil TNP TB Test Mitogen - Nil TNP TB Test TB - Nil TNP TB Test (QFT) TNP 06/12/18 06/12/18 06/12/18 11:54 17:07 20:44 WBC RBC Hgb Hct MCV MCH MCHC RDW Plt Count MPV Neut % (Auto) Lymph % (Auto) [place] % (Auto) Eos % (Auto) Baso % (Auto) Neut # (Auto) Lymph # (Auto) [place] # (Auto) Eos # (Auto) Baso # (Auto) Sodium Potassium Chloride Carbon Dioxide Anion Gap BUN Creatinine Est GFR ( Amer) Est GFR (Non-Af Amer) POC Glucose (mg/dL) 322 H 209 H 176 H Random Glucose Calcium Phosphorus Magnesium Total Bilirubin AST ALT Alkaline Phosphatase Total Protein Albumin Globulin Albumin/Globulin Ratio CELE Screen Proteinase 3 (PR3) Myeloperoxidase Ab Thyroperoxidase Ab TB Test (QFT) Nil TB Test Mitogen - Nil TB Test TB - Nil TB Test (QFT) 06/13/18 06/13/18 06/13/18 06:36 08:08 08:08 WBC 8.8 RBC 5.00 Hgb 14.5 Hct 42.9 MCV 85.9 MCH 29.0 MCHC 33.7 RDW 14.9 H Plt Count 207 MPV 10.0 Neut % (Auto) 59.4 Lymph % (Auto) 28.1 [place] % (Auto) 8.6 Eos % (Auto) 3.3 Baso % (Auto) 0.6 Neut # (Auto) 5.3 Lymph # (Auto) 2.5 [place] # (Auto) 0.8 Eos # (Auto) 0.3 Baso # (Auto) 0.0 Sodium 140 Potassium 4.4 Chloride 97 L Carbon Dioxide 31 H Anion Gap 16 BUN 20 H Creatinine 1.2 Est GFR ( Amer) 56 Est GFR (Non-Af Amer) 46 POC Glucose (mg/dL) 218 H Random Glucose 242 H Calcium 9.6 Phosphorus 3.6 Magnesium 2.0 Total Bilirubin 0.4 AST 18 ALT 26 Alkaline Phosphatase 141 H Total Protein 8.0 Albumin 4.1 Globulin 3.8 Albumin/Globulin Ratio 1.1 CELE Screen Proteinase 3 (PR3) Myeloperoxidase Ab Thyroperoxidase Ab TB Test (QFT) Nil TB Test Mitogen - Nil TB Test TB - Nil TB Test (QFT) 06/13/18 06/13/18 11:14 17:19 WBC RBC Hgb Hct MCV MCH MCHC RDW Plt Count MPV Neut % (Auto) Lymph % (Auto) [place] % (Auto) Eos % (Auto) Baso % (Auto) Neut # (Auto) Lymph # (Auto) [place] # (Auto) Eos # (Auto) Baso # (Auto) Sodium Potassium Chloride Carbon Dioxide Anion Gap BUN Creatinine Est GFR ( Amer) Est GFR (Non-Af Amer) POC Glucose (mg/dL) 365 H 227 H Random Glucose Calcium Phosphorus Magnesium Total Bilirubin AST ALT Alkaline Phosphatase Total Protein Albumin Globulin Albumin/Globulin Ratio CELE Screen Proteinase 3 (PR3) Myeloperoxidase Ab Thyroperoxidase Ab TB Test (QFT) Nil TB Test Mitogen - Nil TB Test TB - Nil TB Test (QFT) Assessment & Plan (1) Mass of right lung Status: Acute Comment: peripheral nature of lesion lends itself to CT needle aspiration bx. for definitive Dx
[2018-06-13 19:05] LABS: SQUAMOUS EPITHIAL 33 /hpf (0-5); URINE BACTERIA FEW (<OCC); URINE BILIRUBIN NEGATIVE (NEGATIVE); URINE BLOOD NEGATIVE (NEGATIVE); URINE CLARITY Hazy (Clear); URINE COLOR Yellow (YELLOW); URINE GLUCOSE (UA) 2+ mg/dL (Normal); URINE LEUKOCYTE ESTERASE NEG Leu/uL (Negative); URINE PROTEIN 1+ mg/dL (NEGATIVE); URINE UROBILINOGEN NORMAL mg/dL (0.2-1.0)
[2018-06-13] MEDS: Rosuvastatin Calcium 2.5 mg Tab PO SCH (21:25)
[2018-06-13] MEDS ORDERED: (Novolin N) Insulin Human Isophane (NPH) 100 u/ml 10 ml vial SC SCH (22:00)
[2018-06-14] MEDS: Levothyroxine 50 MCG TAB PO SCH (05:42)
--- NOTE | 2018-06-14 07:01 | CP.PCM.PN ---
Subjective - Date & Time of Evaluation Date of Evaluation: 06/14/18 Time of Evaluation: 07:00 - Subjective Subjective: Medicine note for hospitalist service Pt seen and examined at bedside. Pt is axious and upset about her current status , wants to go home to [place]. Pt understands her current status and is advised to follow with medical treatment until ready for discharge. Pt has no new complaints overnight. Pt denies chest pain, SOB, cough, night sweats, n/v, f /c. Objective - Vital Signs/Intake and Output Vital Signs (last 24 hours): Temp Pulse Resp BP Pulse Ox 97.9 F 89 20 134/68 95 06/13/18 23:25 06/13/18 23:25 06/13/18 23:25 06/13/18 23:25 06/13/18 23:25 Intake and Output: 06/14/18 06/14/18 06:59 18:59 Intake Total 350 Balance 350 - Medications Medications: Current Medications Acetylcysteine (Acetylcysteine 20%) 4 ml INH DAILY [facility] Last Admin: 06/11/18 07:46 Dose: 4 ml Albuterol/Ipratropium (Duoneb 3 Mg/0.5 Mg (3 Ml) Ud) 3 ml INH DAILY [facility] Last Admin: 06/11/18 07:46 Dose: 3 ml Bisoprolol Fumarate (Zebeta) 10 mg PO DAILY [facility] Last Admin: 06/13/18 10:15 Dose: 10 mg Dextrose (Dextrose 50% Inj) 0 ml IV STAT PRN; Protocol PRN Reason: Hypoglycemia Protocol Dextrose (Glutose 15) 0 gm PO ONCE PRN; Protocol PRN Reason: Hypoglycemia Protocol Docusate Sodium (Colace) 100 mg PO TID [facility] Last Admin: 06/13/18 17:45 Dose: 100 mg Famotidine (Pepcid) 20 mg PO DAILY [facility] Last Admin: 06/13/18 10:34 Dose: 20 mg Glipizide (Glucotrol) 10 mg PO ACBD [facility] Last Admin: 06/13/18 17:45 Dose: 10 mg Glucagon (Glucagen Diagnostic Kit) 0 mg IM STAT PRN; Protocol PRN Reason: Hypoglycemia Protocol Hydrochlorothiazide (Hydrodiuril) 25 mg PO DAILY [facility] Last Admin: 06/13/18 10:34 Dose: Not Given Azithromycin 500 mg/ Sodium (Chloride) 250 mls @ 166.667 mls/hr IVPB DAILY [facility] PRN Reason: Protocol Last Admin: 06/13/18 09:10 Dose: 166.667 mls/hr Ceftriaxone Sodium 1 gm/ (Sodium Chloride) 100 mls @ 100 mls/hr IVPB Q12H [facility] PRN Reason: Protocol Insulin Aspart (Novolog Mix 70/30 (70/30 Units/Ml)) 24 units SC ACD [facility] Last Admin: 06/13/18 17:46 Dose: 24 units Insulin Human Isoph/Insulin Regular (Novolin 70/30 (70/30 Units/Ml) 10 Ml) 34 units SC ACB SKYE Insulin Human NPH (Novolin N) 24 unit SC HS [facility] Last Admin: 06/13/18 21:26 Dose: 24 units Insulin Human Regular (Novolin R) 0 unit SC ACHS [facility] PRN Reason: Protocol Last Admin: 06/13/18 21:01 Dose: Not Given Levothyroxine Sodium (Synthroid) 50 mcg PO DAILY@0630 [facility] Last Admin: 06/14/18 05:42 Dose: 50 mcg Lisinopril (Zestril) 10 mg PO DAILY [facility] Last Admin: 06/13/18 10:34 Dose: 10 mg Metformin HCl (Glucophage) 850 mg PO BID [facility] Last Admin: 06/13/18 17:45 Dose: 850 mg Zatht-6-Jcfq Ethyl Esters (Lovaza) 1 gm PO BID [facility] Last Admin: 06/13/18 17:45 Dose: 1 gm Rosuvastatin Calcium (Crestor) 2.[address] [facility] Last Admin: 06/13/18 21:25 Dose: 2.5 mg Saccharomyces Boulardii (Florastor) 250 mg PO BID [facility] Last Admin: 06/13/18 17:45 Dose: 250 mg - Labs Labs: 06/13/18 08:08 06/13/18 08:08 - Constitutional Appears: Well, Non-toxic, No Acute Distress - Head Exam Head Exam: ATRAUMATIC, NORMAL INSPECTION - Eye Exam Eye Exam: EOMI, Normal appearance. absent: Scleral icterus - ENT Exam ENT Exam: Mucous Membranes Moist - Neck Exam Neck Exam: Normal Inspection. absent: Lymphadenopathy - Respiratory Exam Respiratory Exam: Clear to Ausculation Bilateral, NORMAL BREATHING PATTERN. absent: Rales, Rhonchi, Wheezes, Respiratory Distress - Cardiovascular Exam Cardiovascular Exam: RRR, +S1, +S2. absent: Murmur - GI/Abdominal Exam GI & Abdominal Exam: Soft, Normal Bowel Sounds. absent: Guarding, Tenderness - Extremities Exam Extremities Exam: Normal Inspection. absent: Calf Tenderness, Joint Swelling - Back Exam Back Exam: NORMAL INSPECTION - Neurological Exam Neurological Exam: Alert, Awake, CN II-XII Intact, Oriented x3 Neuro motor strength exam: Left Upper Extremity: 5, Right Upper Extremity: 5, Left Lower Extremity: 5, Right Lower Extremity: 5 - Psychiatric Exam Psychiatric exam: Anxious (crying) - Skin Skin Exam: Normal Color, Warm Assessment and Plan - Assessment and Plan (Free Text) Assessment: 58yo Female admitted for possible TB vs fungal vs infectious pneumonia. Plan: TB vs fungal vs infection -Pulm consulted, Dr. Álvarez: recommending IR needle biopsy of peripheral lung mass with CT guidance. -IR consulted: -PPD (72hr)- positive -Azithromycin 500mg ivpb daily -Ceftriaxone 1gm q12h -Chest CT: 2.1 cm mass is identified in the right upper lobe within a cavitary thin walled structure suspicious for an aspergilloma or other fungal lesion. Neoplasm is not favored but is not completely excluded. Mild but diffuse ground glass opacity scattered bilaterally, nonspecific finding but could reflect active interstitial pulmonary disease. Clinically correlate further. No pleural or pericardial effusion or significant lymphadenopathy. 4mm subpleural nodule left lower lobe. Clinically correlate as to risk factors for developing lung cancer Incidental Cholelithiasis. Punctate intrarenal calculus upper pole right kidney. -ID, Dr. Roberts consulted, help appreciated: sputum obtained, fungal culture, pulm consult -Influenza: neg -legionella: neg -cryptococcus: neg -mycoplasma, strep pneumo -Quantiferon gold pending -obtain AFB sputum x 3 (using mucomyst and duonebs to initiate sputum production )- 1st sample obtained 06/13/18 -HIV1/2 negative -r/o rheumatologic causes -CRP: 68, trending down from 179.90 -TSH: 5.2, Free T4: 1.15, Thyroxine:9.21 - will need to be repeated in 3 months -ESR: 50 trending down from 75, UTI -urine: 1+ leuk esterase, Positive Gram Neg Rods -Rocephin 1gm q12h -f/u repeat UA, UC HTN -Amlodipine 5mg po daily -Bisoprolol 10mg po daily -HCTZ 25mg po daily DMII -HgA1C: 10.6 -gluc 124 random -accuchecks -ISS -hypoglycemia protocol -as per patient patient takes regular insulin 60 u in am and 55u in pm-- calculate 24 hour insulin sliding scale use -endocrine consulted, started new regimen Dr. Nuñez, help appreciated: Novolin 34 units before breakfast, 24 before dinner. basal insulin 24 units NPH at bedtime HLD -Triglycerides 222 Cholesterol 136 LDL 71 HDL 24 -Diet management -[place] 3 po BID Constipation -Colace 100mg po TID PPX: -SCDs -Heparin 5000u sc q8h -Pepcid 20mg po daily -Florastor 250mg po BID Dispo: Pt pending AFS, need sputum samples, Possible TB. Pending IR for CT guided lung biopsy
--- NOTE | 2018-06-14 07:09 | PN ---
Copied To: Ami Nuñez MD Attending MD: Ami Nuñez MD DATE: 06/13/2018 ENDO FOLLOWUP NOTE LOCATION: In room 667. SUBJECTIVE: This is a 58-year-old female with recent uncontrolled type 2 insulin-requiring diabetes, presenting here with marked hyperglycemic accelerations and is now being followed closely for metabolic management. Her glycemic levels are fluctuating, but much improved at this time and the glucose values have ranged from 176 to 218 and 365 mg/dL. LABORATORY DATA: Her latest chemistry showed a BUN of 20, sodium 140, potassium 4.4, chloride 97, CO2 of 31, glucose 242, and creatinine 1.2. ASSESSMENT AND PLAN: So, at this time we will modify once again her basal and bolus insulin regimen and increase the Novolin 70/30 to 34 units before breakfast and 24 units before dinner to start today. We will increase her bedtime insulin with NPH to be given as 24 units subcutaneously at bedtime daily as given. We will obtain serial chemistries and supplement accordingly as need. We will follow. Ami Nuñez MD
[2018-06-14 08:02] LABS: BASO # 0.1 K/uL (0.0-0.2); BASO % 0.6 % (0.0-2.0); EOS # 0.3 K/uL (0.0-0.7); EOS % 3.6 % (0.0-4.0); LYMPH # 1.9 K/uL (1.0-4.3); LYMPH % 24.4 % (20.0-40.0); MEAN CELL VOLUME 85.4 fL (81.0-99.0); MEAN CORPUSCULAR HEMOGLOBIN 28.8 pg (27.0-31.0); MEAN CORPUSCULAR HGB CONC 33.7 g/dL (33.0-37.0); MEAN PLATELET VOLUME 10.4 fL (7.2-11.7); MONO # 0.6 K/uL (0.0-0.8); NEUT # 5.1 K/uL (1.8-7.0); NEUT % 64.4 % (50.0-75.0); NRBC % 0.1 % (0.0-2.0); RBC 4.85 Mil/uL (3.80-5.20); RED CELL DISTRIBUTION WIDTH 14.9 % (11.5-14.5)
[2018-06-14 08:12] LABS: INR 0.9; PROTHROMBIN TIME 10.3 SECONDS (9.7-12.2)
[2018-06-14 08:22] LABS: ALB/GLOB RATIO 1.1 (1.0-2.1); ALBUMIN 3.7 g/dL (3.5-5.0); CALCIUM 9.5 mg/dl (8.6-10.4)
[2018-06-14] MEDS: (Novolin R) Insulin Human Regular 100 units/ml vial SC SCH ×4 (08:32→22:18)
[2018-06-14] MEDS: (Novolin 70/30) NPH/Regular 70/30 Units/ml 10 ml vial SC SCH ×2 (09:01→09:04)
[2018-06-14] MEDS: Azithromycin 500 MG in Sodium Chloride 0.9% 250 ML IVPB SCH (09:31)
[2018-06-14] MEDS: Omega-3-Acid Ethyl Esters 1 GM Cap PO SCH ×2 (09:31→17:49)
[2018-06-14] MEDS: Saccharomyces Boulardi 250 mg Cap PO SCH ×2 (09:32→17:49)
[2018-06-14] MEDS: Acetylcysteine 20% Inhal Soln (4ml) INH SCH (13:52)
[2018-06-14] MEDS: Albuterol-Ipratrop 3 mg / 0.5 (3 ml) UD INH SCH (13:52)
[2018-06-14] MEDS: (Novolog Mix 70/30) Insulin Aspart/Insulin Aspar 100 units/ml SC SCH (17:50)
--- NOTE | 2018-06-14 21:17 | PN ---
Copied To: Ami Nuñez MD Attending MD: Ami Nuñez MD DATE: 06/14/2018 ENDO FOLLOWUP NOTE LOCATION: Room 667 SUBJECTIVE: This is a 58-year-old female with recent uncontrolled type 2 insulin-requiring diabetes, now being followed closely for metabolic management. Her glycemic levels are fluctuating, but much improved at this time and the latest glucose levels have ranged from 124 to 252 mg/dL. LABORATORY DATA: Her latest chemistry showed BUN of 23, sodium 138, potassium 4.7, chloride 100, CO2 of 27, glucose 115, and creatinine 1.2. ASSESSMENT AND PLAN: So, at this time, we will continue the same basal and premixed insulin regimen to allow for dose equilibration and keep her on the Novolin 70/30 given as 34 units before breakfast and 24 units before dinner with NPH given as 24 units subcu at bedtime daily as given. We will actually lower her NPH to 20 units subcu at bedtime daily as given. We will obtain serial chemistries and supplement accordingly as needed. We will also sign out from the endocrine care at this time and would suggest to continue exactly the same regimen as ordered upon discharge. Ami Nuñez MD
[2018-06-14] MEDS: (Novolin N) Insulin Human Isophane (NPH) 100 u/ml 10 ml vial SC SCH (22:17)
[2018-06-14] MEDS: Rosuvastatin Calcium 2.5 mg Tab PO SCH (22:17)
--- NOTE | 2018-06-15 03:39 | PN ---
Copied To: Clotilde Roberts MD Attending MD: Clotilde Roberts MD DATE: 06/14/2018 SUBJECTIVE: The patient is not complaining of any symptoms. I came to see her. She was seen by ____ and she is supposed to have a procedure from IR. Gold QuantiFERON test was again repeated today I am told as it was not enough sample probably and the patient also gave two sputums, but we are not sure what we will find. She denies any other complaints. She has no cough, no cold, no symptoms at this time. She is on Rocephin and Zithromax at this time and pulmonary eval was noted. She is diabetic, on her medications. PHYSICAL EXAMINATION VITAL SIGNS: Stable. LUNGS: Clear otherwise. HEART: S1, S2 regular. ABDOMEN: Soft. She did have a cavitary lesion in the lungs and needs further pulmonary workup. We will follow. Clotilde Roberts MD
[2018-06-15] MEDS: Levothyroxine 50 MCG TAB PO SCH (06:02)
[2018-06-15] MEDS: (Novolin 70/30) NPH/Regular 70/30 Units/ml 10 ml vial SC SCH (07:10)
[2018-06-15] MEDS: (Novolin R) Insulin Human Regular 100 units/ml vial SC SCH ×4 (07:10→22:00)
[2018-06-15 07:28] LABS: BASO % 0.5 % (0.0-2.0); EOS # 0.3 K/uL (0.0-0.7); EOS % 3.2 % (0.0-4.0); HEMOGLOBIN 13.6 g/dL (11.0-16.0); LYMPH # 2.1 K/uL (1.0-4.3); LYMPH % 23.5 % (20.0-40.0); MEAN CORPUSCULAR HEMOGLOBIN 28.9 pg (27.0-31.0); MEAN CORPUSCULAR HGB CONC 33.6 g/dL (33.0-37.0); MEAN PLATELET VOLUME 10.1 fL (7.2-11.7); MONO # 0.6 K/uL (0.0-0.8); MONO % 6.6 % (0.0-10.0); NEUT # 5.9 K/uL (1.8-7.0); NEUT % 66.2 % (50.0-75.0); NRBC % 0.1 % (0.0-2.0); RBC 4.69 Mil/uL (3.80-5.20); RED CELL DISTRIBUTION WIDTH 14.7 % (11.5-14.5); WHITE BLOOD COUNT 8.9 K/uL (4.8-10.8)
[2018-06-15 07:41] LABS: ALBUMIN 3.8 g/dL (3.5-5.0); ALT/SGPT 27 U/L (9-52); AST/SGOT 20 U/L (14-36); BLOOD UREA NITROGEN 22 mg/dL (7-17); CALCIUM 9.5 mg/dl (8.6-10.4); GFR AFRICAN-AMERICAN > 60; GFR NON-AFRICAN AMERICAN 57
[2018-06-15] MEDS: Saccharomyces Boulardi 250 mg Cap PO SCH ×2 (09:07→17:28)
[2018-06-15] MEDS: Omega-3-Acid Ethyl Esters 1 GM Cap PO SCH ×2 (09:08→17:28)
[2018-06-15] MEDS: Azithromycin 500 MG in Sodium Chloride 0.9% 250 ML IVPB SCH (09:35)
--- NOTE | 2018-06-15 15:05 | CP.PCM.PN ---
Subjective - Date & Time of Evaluation Date of Evaluation: 06/15/18 Time of Evaluation: 10:00 - Subjective Subjective: Medicine note for hospitalist service Pt seen and examined at bedside. Pt has no complaints overnight. Pt reports two soft brown stools yesterday. Pt feels well and wants to go home. Pt understands it is under medical advice to wait for biopsy of lung mass. Pt agrees and understands status. Pt denies chest pain, sob, dizziness, sweating, n /v, f/c. Objective - Vital Signs/Intake and Output Vital Signs (last 24 hours): Temp Pulse Resp BP Pulse Ox 98.3 F 95 H 20 131/84 94 L 06/15/18 08:31 06/15/18 08:31 06/15/18 08:31 06/15/18 08:31 06/15/18 08:31 Intake and Output: 06/15/18 06/15/18 06:59 18:59 Intake Total 350 Balance 350 - Medications Medications: Current Medications Acetylcysteine (Acetylcysteine 20%) 4 ml INH DAILY [facility] Last Admin: 06/14/18 13:52 Dose: 4 ml Albuterol/Ipratropium (Duoneb 3 Mg/0.5 Mg (3 Ml) Ud) 3 ml INH DAILY [facility] Last Admin: 06/14/18 13:52 Dose: 3 ml Bisoprolol Fumarate (Zebeta) 10 mg PO DAILY [facility] Last Admin: 06/15/18 09:29 Dose: 10 mg Dextrose (Dextrose 50% Inj) 0 ml IV STAT PRN; Protocol PRN Reason: Hypoglycemia Protocol Dextrose (Glutose 15) 0 gm PO ONCE PRN; Protocol PRN Reason: Hypoglycemia Protocol Docusate Sodium (Colace) 100 mg PO TID [facility] Last Admin: 06/15/18 14:48 Dose: 100 mg Famotidine (Pepcid) 20 mg PO DAILY [facility] Last Admin: 06/15/18 09:08 Dose: Not Given Glipizide (Glucotrol) 10 mg PO ACBD [facility] Last Admin: 06/15/18 07:10 Dose: Not Given Glucagon (Glucagen Diagnostic Kit) 0 mg IM STAT PRN; Protocol PRN Reason: Hypoglycemia Protocol Hydrochlorothiazide (Hydrodiuril) 25 mg PO DAILY [facility] Last Admin: 06/13/18 10:34 Dose: Not Given Azithromycin 500 mg/ Sodium (Chloride) 250 mls @ 166.667 mls/hr IVPB DAILY [facility] PRN Reason: Protocol Last Admin: 06/15/18 09:35 Dose: 166.667 mls/hr Ceftriaxone Sodium 1 gm/ (Sodium Chloride) 100 mls @ 100 mls/hr IVPB Q12H [facility] PRN Reason: Protocol Last Admin: 06/15/18 08:36 Dose: 100 mls/hr Insulin Aspart (Novolog Mix 70/30 (70/30 Units/Ml)) 24 units SC ACD [facility] Last Admin: 06/14/18 17:50 Dose: 24 units Insulin Human Isoph/Insulin Regular (Novolin 70/30 (70/30 Units/Ml) 10 Ml) 34 units SC ACB [facility] Last Admin: 06/15/18 07:10 Dose: Not Given Insulin Human NPH (Novolin N) 20 unit SC HS [facility] Last Admin: 06/14/18 22:17 Dose: 20 units Insulin Human Regular (Novolin R) 0 unit SC ACHS [facility] PRN Reason: Protocol Last Admin: 06/15/18 12:12 Dose: Not Given Levothyroxine Sodium (Synthroid) 50 mcg PO DAILY@0630 [facility] Last Admin: 06/15/18 06:02 Dose: 50 mcg Lisinopril (Zestril) 10 mg PO DAILY [facility] Last Admin: 06/15/18 09:29 Dose: 10 mg Metformin HCl (Glucophage) 850 mg PO BID [facility] Last Admin: 06/15/18 09:08 Dose: Not Given Uxcfg-8-Lmgv Ethyl Esters (Lovaza) 1 gm PO BID [facility] Last Admin: 06/15/18 09:08 Dose: Not Given Rosuvastatin Calcium (Crestor) 2.5 mg PO [facility] Last Admin: 06/14/18 22:17 Dose: 2.5 mg Saccharomyces Boulardii (Florastor) 250 mg PO BID [facility] Last Admin: 06/15/18 09:07 Dose: Not Given - Labs Labs: 06/15/18 07:13 06/15/18 07:13 PT 10.3 SECONDS (9.7-12.2) 06/14/18 07:41 INR 0.9 06/14/18 07:41 APTT 23 SECONDS (21-34) 06/14/18 07:41 - Constitutional Appears: Well, Non-toxic, No Acute Distress - Head Exam Head Exam: ATRAUMATIC, NORMOCEPHALIC - Eye Exam Eye Exam: EOMI, Normal appearance. absent: Scleral icterus - ENT Exam ENT Exam: Mucous Membranes Moist - Neck Exam Neck Exam: Normal Inspection. absent: Tenderness, Thyromegaly - Respiratory Exam Respiratory Exam: Clear to Ausculation Bilateral, NORMAL BREATHING PATTERN. absent: Decreased Breath Sounds, Rales, Rhonchi, Wheezes, Respiratory Distress, Stridor - Cardiovascular Exam Cardiovascular Exam: RRR, +S1, +S2. absent: Murmur - GI/Abdominal Exam GI & Abdominal Exam: Soft, Normal Bowel Sounds. absent: Guarding, Tenderness Additional comments: large central body habitus - Extremities Exam Extremities Exam: Normal Inspection, Pedal Edema (+1 bilateral). absent: Calf Tenderness, Joint Swelling, Tenderness - Back Exam Back Exam: NORMAL INSPECTION. absent: rash noted - Neurological Exam Neurological Exam: Alert, Awake, Normal Gait, Oriented x3 Neuro motor strength exam: Left Upper Extremity: 5, Right Upper Extremity: 5, Left Lower Extremity: 5, Right Lower Extremity: 5 - Psychiatric Exam Psychiatric exam: Anxious (crying) - Skin Skin Exam: Dry, Normal Color, Warm. absent: Diaphoretic, Pallor Assessment and Plan - Assessment and Plan (Free Text) Assessment: 58yo Female admitted for possible TB vs fungal vs infectious pneumonia. Cultures neg, pending CT guided lung biopsy Plan: TB vs fungal vs infection -Acid Fast culture: negative -Pulm consulted, Dr. Álvarez: recommending IR needle biopsy of peripheral lung mass with CT guidance. -IR consulted: -PPD (72hr)- positive -Azithromycin 500mg ivpb daily -Ceftriaxone 1gm q12h -Chest CT: 2.1 cm mass is identified in the right upper lobe within a cavitary thin walled structure suspicious for an aspergilloma or other fungal lesion. Neoplasm is not favored but is not completely excluded. Mild but diffuse ground glass opacity scattered bilaterally, nonspecific finding but could reflect active interstitial pulmonary disease. Clinically correlate further. No pleural or pericardial effusion or significant lymphadenopathy. 4mm subpleural nodule left lower lobe. Clinically correlate as to risk factors for developing lung cancer Incidental Cholelithiasis. Punctate intrarenal calculus upper pole right kidney. -ID, Dr. Roberts consulted, help appreciated: sputum obtained, fungal culture, pulm consult -Influenza: neg -legionella: neg -cryptococcus: neg -mycoplasma, strep pneumo -Quantiferon gold pending -HIV1/2 negative -r/o rheumatologic causes -CRP: 68, trending down from 179.90 -TSH: 5.2, Free T4: 1.15, Thyroxine:9.21 - will need to be repeated in 3 months -ESR: 50 trending down from 75, UTI -urine: 1+ leuk esterase, Positive Gram Neg Rods -Rocephin 1gm q12h -f/u repeat UA, UC HTN -Amlodipine 5mg po daily -Bisoprolol 10mg po daily -HCTZ 25mg po daily DMII -HgA1C: 10.6 -gluc 124 random -accuchecks -ISS -hypoglycemia protocol -as per patient patient takes regular insulin 60 u in am and 55u in pm-- calculate 24 hour insulin sliding scale use -endocrine consulted, started new regimen Dr. Nuñez, help appreciated: Novolin 34 units before breakfast, 24 before dinner. basal insulin 24 units NPH at bedtime HLD -Triglycerides 222 Cholesterol 136 LDL 71 HDL 24 -Diet management -[place] 3 po BID Constipation -Colace 100mg po TID PPX: -SCDs -Heparin 5000u sc q8h -Pepcid 20mg po daily -Florastor 250mg po BID Dispo:AFS neg. Pending IR for CT guided lung biopsy
[2018-06-15] MEDS: (Novolog Mix 70/30) Insulin Aspart/Insulin Aspar 100 units/ml SC SCH (17:28)
[2018-06-15] MEDS: Rosuvastatin Calcium 2.5 mg Tab PO SCH (22:11)
[2018-06-15] MEDS: (Novolin N) Insulin Human Isophane (NPH) 100 u/ml 10 ml vial SC SCH (22:12)
[2018-06-16] MEDS: Levothyroxine 50 MCG TAB PO SCH (05:53)
--- NOTE | 2018-06-16 07:06 | CP.PCM.PN ---
Subjective - Date & Time of Evaluation Date of Evaluation: 06/16/18 Time of Evaluation: 07:05 - Subjective Subjective: Resident Progress Note for Hospitalist Service Patient examined at bedside. No acute events overnight. States that she is eating and drinking well. Denies headache, dizziness, chest pain, shortness of breath, abdominal pain, changes in bowel movements, dysuria. Objective - Vital Signs/Intake and Output Vital Signs (last 24 hours): Temp Pulse Resp BP Pulse Ox 98.1 F 82 20 106/71 94 L 06/15/18 23:35 06/15/18 23:35 06/15/18 23:35 06/15/18 23:35 06/15/18 23:35 - Medications Medications: Current Medications Acetylcysteine (Acetylcysteine 20%) 4 ml INH DAILY [facility] Last Admin: 06/14/18 13:52 Dose: 4 ml Albuterol/Ipratropium (Duoneb 3 Mg/0.5 Mg (3 Ml) Ud) 3 ml INH DAILY [facility] Last Admin: 06/14/18 13:52 Dose: 3 ml Bisoprolol Fumarate (Zebeta) 10 mg PO DAILY [facility] Last Admin: 06/15/18 09:29 Dose: 10 mg Dextrose (Dextrose 50% Inj) 0 ml IV STAT PRN; Protocol PRN Reason: Hypoglycemia Protocol Dextrose (Glutose 15) 0 gm PO ONCE PRN; Protocol PRN Reason: Hypoglycemia Protocol Docusate Sodium (Colace) 100 mg PO TID [facility] Last Admin: 06/15/18 17:28 Dose: 100 mg Famotidine (Pepcid) 20 mg PO DAILY [facility] Last Admin: 06/15/18 09:08 Dose: Not Given Glipizide (Glucotrol) 10 mg PO ACBD [facility] Last Admin: 06/15/18 17:28 Dose: 10 mg Glucagon (Glucagen Diagnostic Kit) 0 mg IM STAT PRN; Protocol PRN Reason: Hypoglycemia Protocol Hydrochlorothiazide (Hydrodiuril) 25 mg PO DAILY [facility] Last Admin: 06/13/18 10:34 Dose: Not Given Azithromycin 500 mg/ Sodium (Chloride) 250 mls @ 166.667 mls/hr IVPB DAILY [facility] PRN Reason: Protocol Last Admin: 06/15/18 09:35 Dose: 166.667 mls/hr Ceftriaxone Sodium 1 gm/ (Sodium Chloride) 100 mls @ 100 mls/hr IVPB Q12H [facility] PRN Reason: Protocol Last Admin: 06/15/18 20:16 Dose: 100 mls/hr Insulin Aspart (Novolog Mix 70/30 (70/30 Units/Ml)) 24 units SC ACD [facility] Last Admin: 06/15/18 17:28 Dose: 24 units Insulin Human Isoph/Insulin Regular (Novolin 70/30 (70/30 Units/Ml) 10 Ml) 34 units SC ACB [facility] Last Admin: 06/15/18 07:10 Dose: Not Given Insulin Human NPH (Novolin N) 20 unit SC HS [facility] Last Admin: 06/15/18 22:12 Dose: 20 units Insulin Human Regular (Novolin R) 0 unit SC ACHS [facility] PRN Reason: Protocol Last Admin: 06/15/18 17:09 Dose: Not Given Levothyroxine Sodium (Synthroid) 50 mcg PO DAILY@0630 [facility] Last Admin: 06/16/18 05:53 Dose: 50 mcg Lisinopril (Zestril) 10 mg PO DAILY [facility] Last Admin: 06/15/18 09:29 Dose: 10 mg Metformin HCl (Glucophage) 850 mg PO BID [facility] Last Admin: 06/15/18 17:28 Dose: 850 mg Grlpg-3-Rory Ethyl Esters (Lovaza) 1 gm PO BID [facility] Last Admin: 06/15/18 17:28 Dose: 1 gm Rosuvastatin Calcium (Crestor) 2.5 mg PO [facility] Last Admin: 06/15/18 22:11 Dose: 2.5 mg Saccharomyces Boulardii (Florastor) 250 mg PO BID [facility] Last Admin: 06/15/18 17:28 Dose: 250 mg - Labs Labs: 06/15/18 07:13 06/15/18 07:13 PT 10.3 SECONDS (9.7-12.2) 06/14/18 07:41 INR 0.9 06/14/18 07:41 APTT 23 SECONDS (21-34) 06/14/18 07:41 - Additional Findings Additional findings: - Constitutional Appears: Well, Non-toxic, No Acute Distress - Head Exam Head Exam: ATRAUMATIC, NORMOCEPHALIC - Eye Exam Eye Exam: EOMI, Normal appearance - ENT Exam ENT Exam: Mucous Membranes Moist - Neck Exam Neck Exam: Normal Inspection - Respiratory Exam Respiratory Exam: Clear to Ausculation Bilateral, NORMAL BREATHING PATTERN. absent: Rales, Rhonchi, Wheezes, Respiratory Distress - Cardiovascular Exam Cardiovascular Exam: RRR, +S1, +S2 - GI/Abdominal Exam GI & Abdominal Exam: Soft, Normal Bowel Sounds - Extremities Exam Extremities Exam: Normal Inspection - Back Exam Back Exam: NORMAL INSPECTION - Neurological Exam Neurological Exam: Alert, Awake, Oriented x3 - Psychiatric Exam Psychiatric exam: Normal mood - Skin Skin Exam: Dry, Normal Color, Warm Assessment and Plan - Assessment and Plan (Free Text) Plan: TB vs fungal vs infection -Acid Fast culture: negative -Pulm consulted, Dr. Álvarez: recommending IR needle biopsy of peripheral lung mass with CT guidance. -IR consulted: -PPD (72hr)- positive -Azithromycin 500mg ivpb daily -Ceftriaxone 1gm q12h -Chest CT: 2.1 cm mass is identified in the right upper lobe within a cavitary thin walled structure suspicious for an aspergilloma or other fungal lesion. Neoplasm is not favored but is not completely excluded. Mild but diffuse ground glass opacity scattered bilaterally, nonspecific finding but could reflect active interstitial pulmonary disease. Clinically correlate further. No pleural or pericardial effusion or significant lymphadenopathy. 4mm subpleural nodule left lower lobe. Clinically correlate as to risk factors for developing lung cancer Incidental Cholelithiasis. Punctate intrarenal calculus upper pole right kidney. -ID, Dr. Roberts consulted, help appreciated: sputum obtained, fungal culture, pulm consult -Influenza: neg -legionella: neg -cryptococcus: neg -mycoplasma, strep pneumo -Quantiferon gold pending -HIV1/2 negative -r/o rheumatologic causes -CRP: 68, trending down from 179.90 -TSH: 5.2, Free T4: 1.15, Thyroxine:9.21 - will need to be repeated in 3 months -ESR: 50 trending down from 75, UTI -urine: 1+ leuk esterase, Positive Gram Neg Rods -Rocephin 1gm q12h -f/u repeat UA, UC HTN -Amlodipine 5mg po daily -Bisoprolol 10mg po daily -HCTZ 25mg po daily DMII -HgA1C: 10.6 -gluc 124 random -accuchecks -ISS -hypoglycemia protocol -as per patient patient takes regular insulin 60 u in am and 55u in pm-- calculate 24 hour insulin sliding scale use -endocrine consulted, started new regimen Dr. Nuñez, help appreciated: Novolin 34 units before breakfast, 24 before dinner. basal insulin 24 units NPH at bedtime HLD -Triglycerides 222 Cholesterol 136 LDL 71 HDL 24 -Diet management -[place] 3 po BID Constipation -Colace 100mg po TID PPX: -SCDs -Heparin 5000u sc q8h -Pepcid 20mg po daily -Florastor 250mg po BID Dispo:AFS neg. Pending IR for CT guided lung biopsy Moni Artis PGY-1
[2018-06-16] MEDS: (Novolin R) Insulin Human Regular 100 units/ml vial SC SCH ×3 (07:14→16:49)
[2018-06-16 07:55] LABS: BASO # 0.1 K/uL (0.0-0.2); EOS # 0.3 K/uL (0.0-0.7); EOS % 3.6 % (0.0-4.0); HEMOGLOBIN 13.3 g/dL (11.0-16.0); LYMPH # 2.6 K/uL (1.0-4.3); LYMPH % 29.2 % (20.0-40.0); MEAN CELL VOLUME 86.2 fL (81.0-99.0); MEAN CORPUSCULAR HGB CONC 33.7 g/dL (33.0-37.0); MEAN PLATELET VOLUME 10.6 fL (7.2-11.7); MONO # 0.6 K/uL (0.0-0.8); MONO % 6.6 % (0.0-10.0); NEUT # 5.4 K/uL (1.8-7.0); NEUT % 59.6 % (50.0-75.0); NRBC % 0.1 % (0.0-2.0); RBC 4.59 Mil/uL (3.80-5.20); RED CELL DISTRIBUTION WIDTH 15.2 % (11.5-14.5)
[2018-06-16 08:02] LABS: ALB/GLOB RATIO 1.1 (1.0-2.1); ALBUMIN 3.8 g/dL (3.5-5.0); ALT/SGPT 24 U/L (9-52); AST/SGOT 15 U/L (14-36); BLOOD UREA NITROGEN 20 mg/dL (7-17); CALCIUM 9.7 mg/dl (8.6-10.4); GFR AFRICAN-AMERICAN > 60; GFR NON-AFRICAN AMERICAN 51
[2018-06-16] MEDS: Albuterol-Ipratrop 3 mg / 0.5 (3 ml) UD INH SCH (09:03)
[2018-06-16] MEDS: Acetylcysteine 20% Inhal Soln (4ml) INH SCH (09:03)
[2018-06-16] MEDS: (Novolin 70/30) NPH/Regular 70/30 Units/ml 10 ml vial SC SCH (09:30)
[2018-06-16] MEDS: Omega-3-Acid Ethyl Esters 1 GM Cap PO SCH ×2 (09:31→17:50)
[2018-06-16] MEDS: Saccharomyces Boulardi 250 mg Cap PO SCH ×2 (09:31→17:50)
[2018-06-16] MEDS: Azithromycin 500 MG in Sodium Chloride 0.9% 250 ML IVPB SCH (11:37)
[2018-06-16 16:57] VITALS: BP 117/62; PULSE 76; TEMP 97.9; O2SAT 94
[2018-06-16] MEDS: (Novolog Mix 70/30) Insulin Aspart/Insulin Aspar 100 units/ml SC SCH (17:49)
[2018-06-16] MEDS ORDERED: Fluconazole IV 100mg/50 ml NS 50 ML IVPB SCH (18:00)
--- NOTE | 2018-06-16 18:48 | CP.PCM.DIS ---
Provider - Provider Date of Admission: 06/10/18 16:13 Attending physician: Jason Ernandez MD Consults: Dr. Joaquin Alexis Time Spent in preparation of Discharge (in minutes): 45 Diagnosis - Discharge Diagnosis (1) Cavitary lesion of lung Status: Acute Hospital Course - Lab Results Lab Results: Micro Results 06/14/18 14:28 Other: Please Indicate Mycobacterial Culture - Preliminary 06/15/18 09:24 Other: Please Indicate Mycobacterial Culture - Preliminary 06/13/18 07:33 Sputum Gram Stain - Final 06/13/18 07:33 Sputum Sputum Culture - Final NORMAL ORAL TITA 06/13/18 13:57 Other: Please Indicate Mycobacterial Culture - Preliminary 06/13/18 18:45 Urine,Clean Catch Urine Culture - Final Yeast Species 06/10/18 14:12 Urine Urine Culture - Final Escherichia Coli Most Recent Lab Values WBC 9.0 K/uL (4.8-10.8) 06/16/18 07:41 RBC 4.59 Mil/uL (3.80-5.20) 06/16/18 07:41 Hgb 13.3 g/dL (11.0-16.0) 06/16/18 07:41 Hct 39.5 % (34.0-47.0) 06/16/18 07:41 MCV 86.2 fL (81.0-99.0) 06/16/18 07:41 MCH 29.0 pg (27.0-31.0) 06/16/18 07:41 MCHC 33.7 g/dL (33.0-37.0) 06/16/18 07:41 RDW 15.2 % (11.5-14.5) H 06/16/18 07:41 Plt Count 205 K/uL (130-400) 06/16/18 07:41 MPV 10.6 fL (7.2-11.7) 06/16/18 07:41 Neut % (Auto) 59.6 % (50.0-75.0) 06/16/18 07:41 Lymph % (Auto) 29.2 % (20.0-40.0) 06/16/18 07:41 [place] % (Auto) 6.6 % (0.0-10.0) 06/16/18 07:41 Eos % (Auto) 3.6 % (0.0-4.0) 06/16/18 07:41 Baso % (Auto) 1.0 % (0.0-2.0) 06/16/18 07:41 Neut # (Auto) 5.4 K/uL (1.8-7.0) 06/16/18 07:41 Lymph # (Auto) 2.6 K/uL (1.0-4.3) 06/16/18 07:41 [place] # (Auto) 0.6 K/uL (0.0-0.8) 06/16/18 07:41 Eos # (Auto) 0.3 K/uL (0.0-0.7) 06/16/18 07:41 Baso # (Auto) 0.1 K/uL (0.0-0.2) 06/16/18 07:41 Neutrophils % (Manual) 86 % (50-75) H 06/10/18 12:56 Band Neutrophils % 4 % (0-2) H 06/10/18 12:56 Lymphocytes % (Manual) 7 % (20-40) L 06/10/18 12:56 Monocytes % (Manual) 3 % (0-10) 06/10/18 12:56 Platelet Estimate Normal (NORMAL) 06/10/18 12:56 Large Platelets Present 06/10/18 12:56 Anisocytosis (manual) Slight 06/10/18 12:56 ESR 50 mm/hr (0-20) H 06/12/18 07:03 PT 10.3 SECONDS (9.7-12.2) 06/14/18 07:41 INR 0.9 06/14/18 07:41 APTT 23 SECONDS (21-34) 06/14/18 07:41 Sodium 140 mmol/L (132-148) 06/16/18 07:41 Potassium 5.1 mmol/L (3.6-5.2) 06/16/18 07:41 Chloride 101 mmol/L (98-107) 06/16/18 07:41 Carbon Dioxide 29 mmol/L (22-30) 06/16/18 07:41 Anion Gap 15 (10-20) 06/16/18 07:41 BUN 20 mg/dL (7-17) H 06/16/18 07:41 Creatinine 1.1 mg/dL (0.7-1.2) 06/16/18 07:41 Est GFR ( Amer) > 60 06/16/18 07:41 Est GFR (Non-Af Amer) 51 06/16/18 07:41 POC Glucose (mg/dL) 209 mg/dL (65-110) H 06/16/18 16:23 Random Glucose 176 mg/dL (65-105) H 06/16/18 07:41 Hemoglobin A1c 10.6 % (4.2-6.5) H 06/11/18 08:41 Calcium 9.7 mg/dl (8.6-10.4) 06/16/18 07:41 Phosphorus 3.3 mg/dL (2.5-4.5) 06/16/18 07:41 Magnesium 2.0 mg/dL (1.6-2.3) 06/16/18 07:41 Total Bilirubin 0.3 mg/dL (0.2-1.3) 06/16/18 07:41 AST 15 U/L (14-36) 06/16/18 07:41 ALT 24 U/L (9-52) 06/16/18 07:41 Alkaline Phosphatase 115 U/L (38-126) 06/16/18 07:41 C-Reactive Protein 68.80 mg/L (0.0-9.9) H 06/12/18 07:03 Total Protein 7.4 g/dL (6.3-8.3) 06/16/18 07:41 Albumin 3.8 g/dL (3.5-5.0) 06/16/18 07:41 Globulin 3.6 gm/dL (2.2-3.9) 06/16/18 07:41 Albumin/Globulin Ratio 1.1 (1.0-2.1) 06/16/18 07:41 Triglycerides 222 mg/dL (0-149) H 06/11/18 08:41 Cholesterol 136 mg/dL (0-199) 06/11/18 08:41 LDL Cholesterol Direct 71 mg/dL (0-129) 06/11/18 08:41 HDL Cholesterol 24 mg/dL (30-70) L 06/11/18 08:41 Procalcitonin 0.86 NG/ML (0.19-0.49) H 06/12/18 07:03 Free T4 1.15 ng/dL (0.78-2.19) 06/11/18 08:41 Thyroxine (T4) 9.21 ug/dL (5.5-11.0) 06/12/18 07:03 TSH 3rd Generation 5.67 mIU/L (0.46-4.68) H 06/12/18 07:03 Urine Color Yellow (YELLOW) 06/13/18 18:45 Urine Clarity Hazy (Clear) 06/13/18 18:45 Urine pH 5.0 (5.0-8.0) 06/13/18 18:45 Ur Specific [place] 1.018 (1.003-1.030) 06/13/18 18:45 Urine Protein 1+ mg/dL (NEGATIVE) H 06/13/18 18:45 Urine Glucose (UA) 2+ mg/dL (Normal) H 06/13/18 18:45 Urine Ketones Negative mg/dL (NEGATIVE) 06/13/18 18:45 Urine Blood Negative (NEGATIVE) 06/13/18 18:45 Urine Nitrate Negative (NEGATIVE) 06/13/18 18:45 Urine Bilirubin Negative (NEGATIVE) 06/13/18 18:45 Urine Urobilinogen Normal mg/dL (0.2-1.0) 08 18:45 Ur Leukocyte Esterase Neg [place]/uL (Negative) 06/13/18 18:45 Urine WBC (Auto) 5 /hpf (0-5) 06/13/18 18:45 Urine RBC (Auto) 2 /hpf (0-3) 06/10/18 13:15 Ur Squamous Epith Cells 33 /hpf (0-5) H 06/13/18 18:45 Urine Bacteria Few (<OCC) H 06/13/18 18:45 Urine Yeast (Budding) Rare /hpf (NEGATIVE) H 06/13/18 18:45 CELE Screen Negative (Negative) 06/11/18 08:41 Proteinase 3 (PR3) <1.0 AI (<1.0) 06/11/18 08:41 Myeloperoxidase Ab <1.0 AI (<1.0) 06/11/18 08:41 Thyroperoxidase Ab 1 IU/mL (<9) 06/12/18 07:03 Cryptococcus Ag Negative (NEGATIVE) 06/12/18 07:03 HIV 1&2 Antibody Screen Negative (NEGATIVE) 06/10/18 19:36 Influenza Typ A,B (EIA) Negative for flu a/b (NEGATIVE) 06/10/18 16:20 Ur L.pneumophila Ag Negative (NEGATIVE) 06/11/18 06:45 Mycoplasma pneumon IgM Negative (NEGATIVE) 06/10/18 19:36 TB Test (QFT) Nil 0.04 IU/mL 06/14/18 07:15 TB Test Mitogen - Nil 7.26 IU/mL 06/14/18 07:15 TB Test TB - Nil 0.02 IU/mL 06/14/18 07:15 TB Test (QFT) Negative (Negative) 06/14/18 07:15 - Hospital Course Hospital Course: On admission: Patient is a 58 year old F with PMHx of HTN and DMII who presents for 1 day of fevers, chills and vomiting. Patient had two episodes of vomiting up food yesterday and two episodes today. Patient denies any abdominal pain or new foods. Patient denies any sick contact. Patient admits to a headache and dizziness yesterday which have now resolved. Patient admits to increased urinary frequency for 1 day, but no hematuria or dysuria. Patient denies weight loss. Patient denies cough, congestion, chest pain, abdominal pain, diarrhea, or constipation. Patient is visiting from [place] (came on 05/24/18). During hospital stay: Patient had a chest CT which showed 2.1 cm mass is identified in the right upper lobe within a cavitary thin walled structure suspicious for an aspergilloma or other fungal lesion. Neoplasm is not favored but is not completely excluded. Mild but diffuse ground glass opacity scattered bilaterally, nonspecific finding but could reflect active interstitial pulmonary disease. Clinically correlate further. No pleural or pericardial effusion or significant lymphadenopathy. 4mm subpleural nodule left lower lobe. Clinically correlate as to risk factors for developing lung cancer. Incidental Cholelithiasis. Punctate intrarenal calculus upper pole right kidney. Acid fast culture was negative. PPD (72 hour) was positive. Cryptococcus, influenza, legionella, quantiferon gold, HIV 1/2 were all negative. AFS was negative. Patient was treated with Azithromycin 500mg ivpb daily and Ceftriaxone 1gm q12h. ID Dr. Roberts was consulted. Pulmonology Dr. Alexis was consulted, who recommended IR needle biopsy of peripheral lung mass with CT guidance. Patient was also noted to have UTI with 1+ leuk esterase, Positive Gram Neg Rods. She was treated with Rocephin 1 gm Q12H for this. For hypertension, she was given Amlodipine 5mg po daily, Bisoprolol 10mg po daily, HCTZ 25mg po daily. Endocrinology was consulted for management of DMII. Her Hgba1c was 10.6. She was started on a regimen of Novolin 34 units before breakfast, 24 before dinner. basal insulin 24 units NPH at bedtime. Patient was also noted to have triglycerides 222 Cholesterol 136 LDL 71 HDL 24. She was placed on diet management and omega 3 PO BID. Patient was advised to proceed with CT guided lung biopsy. Patient chose to leave against against medical advice. Patient stated she would follow up with her doctor in [place]. Risks and benefits of leaving against medical advice was explained to the patient with the help of in service coordinator Amanda Crews. Please followup with your primary medical doctor in [place] for workup of your cavitary lung lesion. You have been prescribed azithromycin 250 mg daily for 3 days. Please take this medication as prescribed. Please return to the ER if symptoms return or worsen. - Date & Time of H&P Date of H&P: 06/10/18 Time of H&P: 16:29 Discharge Exam - Head Exam Head Exam: ATRAUMATIC, NORMOCEPHALIC - Additional Findings Additional findings: - Constitutional Appears: Well, Non-toxic, No Acute Distress - Head Exam Head Exam: ATRAUMATIC, NORMOCEPHALIC - Eye Exam Eye Exam: EOMI, Normal appearance - ENT Exam ENT Exam: Mucous Membranes Moist - Neck Exam Neck Exam: Normal Inspection - Respiratory Exam Respiratory Exam: Clear to Ausculation Bilateral, NORMAL BREATHING PATTERN. absent: Rales, Rhonchi, Wheezes, Respiratory Distress - Cardiovascular Exam Cardiovascular Exam: RRR, +S1, +S2 - GI/Abdominal Exam GI & Abdominal Exam: Soft, Normal Bowel Sounds - Extremities Exam Extremities Exam: Normal Inspection - Back Exam Back Exam: NORMAL INSPECTION - Neurological Exam Neurological Exam: Alert, Awake, Oriented x3 - Psychiatric Exam Psychiatric exam: Normal mood - Skin Skin Exam: Dry, Normal Color, Warm Discharge Plan - Discharge Medications Prescriptions: Azithromycin 250 mg PO DAILY 3 Days tablet - Follow Up Plan Condition: STABLE Disposition: AGAINST MEDICAL ADVICE Additional Instructions: Please followup with your primary medical doctor in [place] for workup of your cavitary lung lesion. You have been prescribed azithromycin 250 mg daily for 3 days. Please take this medication as prescribed. Please return to the ER if symptoms return or worsen.
== END 2018-06-16 18:55 | disposition left against medical advice (07) | DRG 799 ==
LOC: C.ER 12:10 → C.9E 16:13 → C.6T 17:50
PROVIDERS: ADMIT Family Medicine; ATTEND Family Medicine
DX: A15.0 Tuberculosis of lung (principal); N39.0 Urinary tract infection, site not specified; E11.65 Type 2 diabetes mellitus with hyperglycemia; Z79.4 Long term (current) use of insulin; K59.00 Constipation, unspecified; I51.7 Cardiomegaly; I11.9 Hypertensive heart disease without heart failure; E78.5 Hyperlipidemia, unspecified; B96.20 Unspecified Escherichia coli [E. coli] as the cause of diseases classified elsewhere